=== PATIENT | female | born 1960 | race Caucasian/White ===

== ENCOUNTER 2016-11-16 07:47 | Inpatient (IN) | payer BC ==
[~2016-11-16] VITALS: Ht 160 cm; Wt 73.0 kg
[2016-11-16] MEDS ORDERED: ONDANSETRON INJ 2 MG/ML 2 ML VIAL IV STA (07:57)
[2016-11-16] MEDS ORDERED: SODIUM CHLORIDE 0.9% 1000ML 500 ML IV STA (07:57)
[2016-11-16] MEDS ORDERED: KETOROLAC TROMETHAMINE 30 MG/ML VIAL IV STA (07:57)
[2016-11-16] MEDS ORDERED: SODIUM CHLORIDE 0.9% 1000ML 1,000 ML IV STA (07:57)
[2016-11-16] MEDS ORDERED: OPTIRAY 320 IV PRN (08:15)
--- NOTE | 2016-11-16 08:20 | DIAGNOSTIC IMAGING REPORT ---
CHEST ONE VIEW PORTABLE CLINICAL HISTORY: ABDOMINAL PAIN/GI pain COMPARISON STUDY: No previous studies for comparison. FINDINGS: The bones soft tissues and hemidiaphragms are normal. The cardiomediastinal silhouette is normal. The lungs are clear. The pulmonary vasculature is normal. IMPRESSION: Negative chest. Electronically signed by: Laron Cain M.D. 11/16/2016 8:19 AM Dictated Date/Time: 11/16/2016 8:19 AM
[2016-11-16 08:24] LABS: BASO % 0.3 %; BASO ABS # 0.04 K/uL (0-0.2); COMPLETE YES; EOS % 1.6 %; HEMATOCRIT 43.3 % (37-47); IG% 0.2 %; LYMPH ABS # 1.85 K/uL (1.2-3.4); MEAN CELL VOLUME 89.1 fL (80-100); MEAN CORPUSCULAR HEMOGLOBIN 30.2 pg (25-34); MEAN CORPUSCULAR HGB CONC 33.9 g/dl (32-36); MEAN PLATELET VOLUME 9.9 fL (7.4-10.4); MONO % 7.3 %; NEUT % 75.6 %; PLATELET COUNT 306 K/uL (130-400); RED BLOOD COUNT 4.86 M/uL (4.2-5.4); WHITE BLOOD COUNT 12.31 K/uL (4.8-10.8)
[2016-11-16 08:32] LABS: INR 0.9 (0.9-1.1); PARTIAL THROMBOPLASTIN RATIO 1.1; PROTHROMBIN TIME (PATIENT) 10.1 SECONDS (9.0-12.0)
[2016-11-16 08:50] LABS: ALB/GLOB RATIO 1.1 (0.9-2); BUN/CREATININE RATIO 13.8 (10-20); CALCIUM 10.7 mg/dl (8.5-10.1); CREATININE 0.95 mg/dl (0.60-1.20); POTASSIUM 3.8 mmol/L (3.5-5.1)
[2016-11-16] MEDS ORDERED: CALC1CHW PO (08:55)
[2016-11-16] MEDS ORDERED: MULT-506 PO (08:55)
[2016-11-16] MEDS ORDERED: OMEG10007 PO (08:55)
[2016-11-16] MEDS ORDERED: GLUC10007 PO (08:55)
[2016-11-16] MEDS ORDERED: IBAN150T PO (08:55)
[2016-11-16 09:11] LABS: URINE APPEARANCE CLEAR (CLEAR); URINE BILIRUBIN NEG (NEG); URINE COLOR YELLOW; URINE NITRITE NEG (NEG); URINE PH 7.5 (4.5-7.5); URINE SPECIFIC GRAVITY 1.017 (1.000-1.030); UROBILINOGEN NEG (NEG); ZZUR CULT IF INDIC CLEAN CATCH NO
[2016-11-16 09:12] LABS: MANUAL MICROSCOPIC REQUIRED? NO; REVIEW REQ? NO
--- NOTE | 2016-11-16 10:13 | EMERGENCY ROOM VISIT NOTE ---
History Report prepared by Kailey: Shamir Nunes Under the Supervision of: Dr. Power Ridley M.D. First contact with patient: 07:55 Chief Complaint: BACK PAIN Stated Complaint: LEFT LOWER QUAD PAIN, LOWER BACK ACHE History of Present Illness The patient is a 56 year old female who presents to the Emergency Room with complaints of waxing & waning left lower quadrant abdominal pain that started this morning. The pain radiates to her lower back and is currently rated 7/10 in severity. She has not taken anything for pain. Two nights ago she started to experience chills, shakiness, nausea, and vomiting. Today she is still feeling cold along with the pain that started today. She denies any documented fevers, cough, congestion, diarrhea, or urinary symptoms. She denies any recent falls or trauma. The patient has a past surgical history including hysterectomy, bilateral oophorectomy, and partial colectomy. She denies any history of diverticulitis or pyelonephritis. Her last colonoscopy was 10 months ago. She has no known drug allergies. She follows up with Dr. Turk (Internal Medicine). Source of History: patient Onset: this morning Position: abdomen (LLQ) Symptom Intensity: 7/10 Timing: waxes/wanes Associated Symptoms: + back pain, + chills, + nausea, + vomiting, No cough, No diarrhea, No fevers, No urinary symptoms Review of Systems See HPI for pertinent positives & negatives. A total of 10 systems reviewed and were otherwise negative. Past Medical & Surgical Medical Problems: (1) L URETERAL OBST. PELVIC MASSES. H/O ENDOMETRIAL SARCOMA (2) L URETERAL OBST. PELVIC MASSES. H/O ENDOMETRIAL SARCOMA Social History Marital Status: Housing Status: lives with family Current/Historical Medications Scheduled Calcium Carbonate-Vitamin D (Caltrate 600+D), 1 TAB PO DAILY Glucosamine Sulfate (Glucosamine), 1,000 MG PO DAILY Ibandronate Sodium (Boniva), 150 MG PO MONTHLY Multivitamin (Multivitamin), 1 TAB PO DAILY Miscellaneous Medications Fish Oil ([place]-3), 1 CAP PO Allergies Coded Allergies: No Known Allergies (Unverified , 11/16/16) Physical Exam Vital Signs Date Time Temp Pulse Resp B/P Pulse Ox O2 Delivery O2 Flow Rate FiO2 11/16/16 11:44 78 18 136/75 99 Room Air 11/16/16 10:00 68 18 137/71 96 Room Air 11/16/16 07:56 36.5 88 16 152/97 99 Room Air Physical Exam GENERAL: Patient is in no acute distress. HEENT: No acute trauma, normocephalic atraumatic, mucous membranes moist, no nasal congestion, no scleral icterus. NECK: No stridor, no adenopathy, no meningismus, trachea is midline. LUNGS: Clear to auscultation bilaterally, no wheeze, no rhonchi, breath sounds equal. HEART: Without murmurs gallops or rubs, regular rate and rhythm. ABDOMEN: Soft, tender to palpate the lateral mid left abdominal area, bowel sounds positive, no hernias, no peritonitis. BACK: Left flank discomfort with percussion. EXTREMITIES: No cyanosis or edema, full range of motion of all the joints without pain or difficulty, no signs for acute trauma. NEUROLOGIC: Oriented x 3, no acute motor or sensory deficits, no focal weakness. SKIN: No rash, no jaundice, no diaphoresis. Medical Decision & Procedures ER Provider Diagnostic Interpretation: Radiology results as stated below per my review and radiologist interpretation: CT OF THE ABDOMEN AND PELVIS WITH CONTRAST CLINICAL HISTORY: Severe left lower quadrant pain. Evaluate for acute diverticulitis. COMPARISON STUDY: CT of the abdomen and pelvis October 07, 2015. TECHNIQUE: Following IV administration of 93 mL of Optiray-320, axial images of the abdomen and pelvis were obtained from the lung bases to the proximal femurs. Images were reviewed in the axial, sagittal, and coronal planes. IV contrast was administered without complication. Oral contrast was administered. CT DOSE: 660.36 mGycm FINDINGS: Visualized portions of the lower lungs demonstrate several subpleural nodules which measure up to 7 mm. These are unchanged since exam of October 31, 2006. The liver, spleen and pancreas are unremarkable. A 1.1 cm fat-containing right adrenal nodule represents a myelolipoma and is benign. There is no biliary or pancreatic ductal dilatation. A few subcentimeter hypodense left renal lesions likely reflect cysts. There is moderate to severe left hydroureteronephrosis with abrupt cut off of the left ureter at the level of the left sacroiliac joint. The abrupt change of the left ureter is likely due to a 2.7 x 2.7 cm mass within the left upper hemipelvis shown on axial image 307 of 451. In addition, there is a 3.3 x 2.1 cm mass which appears to be arising from the left aspect of the vaginal cuff. By report, the patient is status post hysterectomy and bilateral ovarian resection. No ureteral calculi are identified. There is no evidence for a bowel obstruction. Caliber and wall thickness of small and large bowel are normal. There is no evidence for acute diverticulitis. No suspicious osseous lesions are present. IMPRESSION: Moderate to severe left hydroureteronephrosis with mild perinephric infiltration with abrupt caliber change of the distal left ureter likely due to a 2.7 x 2.7 cm left pelvic mass with an adjacent 2.7 x 0.7 cm enhancing mass. By report, the patient is status post hysterectomy and bilateral oophorectomy. In addition, a 3.3 x 2.1 cm mass arising from the left aspect of the vaginal cuff is noted. These findings are suggestive of recurrent malignancy. Gynecologic consultation is recommended. Findings discussed with Dr. Ridley at time of dictation. Electronically signed by: Uzair Us M.D. 11/16/2016 11:47 AM Dictated Date/Time: 11/16/2016 11:27 AM CHEST ONE VIEW PORTABLE CLINICAL HISTORY: ABDOMINAL PAIN/GI pain COMPARISON STUDY: No previous studies for comparison. FINDINGS: The bones soft tissues and hemidiaphragms are normal. The cardiomediastinal silhouette is normal. The lungs are clear. The pulmonary vasculature is normal. IMPRESSION: Negative chest. Electronically signed by: Laron Cain M.D. 11/16/2016 8:19 AM Dictated Date/Time: 11/16/2016 8:19 AM Laboratory Results 11/16/16 08:05 Red Blood Count 4.86, Mean Corpuscular Volume 89.1, Mean Corpuscular Hemoglobin 30.2, Mean Corpuscular Hemoglobin Concent 33.9, Mean Platelet Volume 9.9, Neutrophils (%) (Auto) 75.6, Lymphocytes (%) (Auto) 15.0, Monocytes (%) (Auto) 7.3, Eosinophils (%) (Auto) 1.6, Basophils (%) (Auto) 0.3, Neutrophils # (Auto) 9.29, Lymphocytes # (Auto) 1.85, Monocytes # (Auto) 0.90, Eosinophils # (Auto) 0.20, Basophils # (Auto) 0.04 11/16/16 08:05 Test 11/16/16 07:55 11/16/16 08:05 Urine Color YELLOW Urine Appearance CLEAR (CLEAR) Urine pH 7.5 (4.5-7.5) Urine Specific [place] 1.017 (1.000-1.030) Urine Protein NEG (NEG) Urine Glucose (UA) NEG (NEG) Urine Ketones NEG (NEG) Urine Occult Blood NEG (NEG) Urine Nitrite NEG (NEG) Urine Bilirubin NEG (NEG) Urine Urobilinogen NEG (NEG) Urine Leukocyte Esterase NEG (NEG) White Blood Count 12.31 K/uL (4.8-10.8) Red Blood Count 4.86 M/uL (4.2-5.4) Hemoglobin 14.7 g/dL (12.0-16.0) Hematocrit 43.3 % (37-47) Mean Corpuscular Volume 89.1 fL (80-100) Mean Corpuscular Hemoglobin 30.2 pg (25-34) Mean Corpuscular Hemoglobin Concent 33.9 g/dl (32-36) Platelet Count 306 K/uL (130-400) Mean Platelet Volume 9.9 fL (7.4-10.4) Neutrophils (%) (Auto) 75.6 % Lymphocytes (%) (Auto) 15.0 % Monocytes (%) (Auto) 7.3 % Eosinophils (%) (Auto) 1.6 % Basophils (%) (Auto) 0.3 % Neutrophils # (Auto) 9.29 K/uL (1.4-6.5) Lymphocytes # (Auto) 1.85 K/uL (1.2-3.4) Monocytes # (Auto) 0.90 K/uL (0.11-0.59) Eosinophils # (Auto) 0.20 K/uL (0-0.5) Basophils # (Auto) 0.04 K/uL (0-0.2) RDW Standard Deviation 43.0 fL (36.4-46.3) RDW Coefficient of Variation 13.2 % (11.5-14.5) Immature Granulocyte % (Auto) 0.2 % Immature Granulocyte # (Auto) 0.03 K/uL (0.00-0.02) Prothrombin Time 10.1 SECONDS (9.0-12.0) Prothromb Time International Ratio 0.9 (0.9-1.1) Activated Partial Thromboplast Time 27.4 SECONDS (21.0-31.0) Partial Thromboplastin Ratio 1.1 Anion Gap 6.0 mmol/L (3-11) Est Creatinine Clear Calc Drug Dose 61.8 ml/min Estimated GFR () 76.5 Estimated GFR (Non- 66.0 BUN/Creatinine Ratio 13.8 (10-20) Lactic Acid Level 1.0 mmol/L (0.4-2.0) Calcium Level 10.7 mg/dl (8.5-10.1) Total Bilirubin 0.4 mg/dl (0.2-1) Aspartate Amino Transf (AST/SGOT) 24 U/L (15-37) Alanine Aminotransferase (ALT/SGPT) 49 U/L (12-78) Alkaline Phosphatase 100 U/L (45-117) Total Protein 8.0 gm/dl (6.4-8.2) Albumin 4.2 gm/dl (3.4-5.0) Globulin 3.8 gm/dl (2.5-4.0) Albumin/Globulin Ratio 1.1 (0.9-2) Lipase 84 U/L (73-393) Laboratory results reviewed by me. Medications Administered Medications (Trade) Dose Ordered Sig/Deborah Route Start Time Stop Time Status Last Admin Dose Admin Sodium Chloride (Nss 1000ml) 500 ml @ 999 mls/hr Q31M STAT IV 11/16/16 07:57 11/16/16 08:27 DC 11/16/16 07:57 999 MLS/HR Ondansetron HCl 4 mg 4 mg NOW STAT IV 11/16/16 07:57 11/16/16 08:04 DC 11/16/16 08:15 4 MG Sodium Chloride (Nss 1000ml) 1,000 ml @ 200 mls/hr Q5H STAT IV 11/16/16 07:57 11/16/16 13:00 DC 11/16/16 07:57 200 MLS/HR Ketorolac Tromethamine (Toradol Inj) 30 mg NOW STAT IV 11/16/16 07:57 11/16/16 08:05 DC 11/16/16 08:16 30 MG Hydromorphone HCl (Dilaudid Inj) 1 mg STK-MED ONCE .ROUTE 11/16/16 12:54 11/16/16 12:55 DC 11/16/16 12:56 1 MG ED Course 0755: The patient was evaluated in room A10. A complete history and physical exam was performed. 0757: Toradol 30 mg IV, NSS 1000 ml @ 200 mls/hr, Zofran 4 mg IV, NSS 500 ml @ 999 mls/hr. 1040: Updated the patient on the workup so far. 1138: Dr. Us (Radiology) called to discuss the CT findings. 1201: Discussed the case with Dr. Turk, Internal Medicine. He would like to keep the patient in the hospital. He also requested a Urology consult. 1206: Updated the patient on the workup. 1234: Spoke with a mid-level provider from Dr. Judge's office. They will call back. 1255: Discussed the case with Dr. Judge, Urologist. He agreed to offer consult. Medical Decision Differential diagnosis includes pyelonephritis, renal colic, UTI, diverticulitis , bowel obstruction, adhesions, bowel perforation, hernia, pneumonia. There is a mild leukocytosis which could be consistent with infection or just her pain. No anemia. No significant electrolyte abnormality, kidney failure or hepatitis. There is no pancreatitis. Urinalysis does not show hematuria or infection. Chest film does not show pneumonia or free air. Abdominal and pelvis CT shows left sided hydronephrosis and hydroureter. There are findings in the pelvis concerning for return of her malignancy. The patient received IV saline, IV Toradol and IV Zofran, she is more comfortable. I discussed the case with Dr. Alexander Turk. The patient will be brought into the hospital for now for more of a workup and possibly a left ureteral stent. I talked to the patient about her findings, case management has been involved. Consults Time Called: 114 Consulting Physician: Dr. Turk, Internal Medicine Returned Call: 1201 He would like to keep the patient in the hospital. He also requested a Urology consult. Additional Consults: Time Called: 1234 Consulted Physician: Dr. Judge, Urology Returned Call: [phone] Additional Comments: He agreed to offer consult. Impression Primary Impression: Hydronephrosis Additional Impressions: Left flank pain Pelvic mass Scribe Attestation The scribe's documentation has been prepared under my direction and personally reviewed by me in its entirety. I confirm that the note above accurately reflects all work, treatment, procedures, and medical decision making performed by me. Departure Information Dispostion Being Evaluated By Hospitalist Referrals Alexander Villanueva M.D. (PCP) Patient Instructions My [facility] Problem Qualifiers
--- NOTE | 2016-11-16 11:48 | DIAGNOSTIC IMAGING REPORT ---
CT OF THE ABDOMEN AND PELVIS WITH CONTRAST CLINICAL HISTORY: Severe left lower quadrant pain. Evaluate for acute diverticulitis. COMPARISON STUDY: CT of the abdomen and pelvis October 07, 2015. TECHNIQUE: Following IV administration of 93 mL of Optiray-320, axial images of the abdomen and pelvis were obtained from the lung bases to the proximal femurs. Images were reviewed in the axial, sagittal, and coronal planes. IV contrast was administered without complication. Oral contrast was administered. CT DOSE: 660.36 mGycm FINDINGS: Visualized portions of the lower lungs demonstrate several subpleural nodules which measure up to 7 mm. These are unchanged since exam of October 31, 2006. The liver, spleen and pancreas are unremarkable. A 1.1 cm fat-containing right adrenal nodule represents a myelolipoma and is benign. There is no biliary or pancreatic ductal dilatation. A few subcentimeter hypodense left renal lesions likely reflect cysts. There is moderate to severe left hydroureteronephrosis with abrupt cut off of the left ureter at the level of the left sacroiliac joint. The abrupt change of the left ureter is likely due to a 2.7 x 2.7 cm mass within the left upper hemipelvis shown on axial image 307 of 451. In addition, there is a 3.3 x 2.1 cm mass which appears to be arising from the left aspect of the vaginal cuff. By report, the patient is status post hysterectomy and bilateral ovarian resection. No ureteral calculi are identified. There is no evidence for a bowel obstruction. Caliber and wall thickness of small and large bowel are normal. There is no evidence for acute diverticulitis. No suspicious osseous lesions are present. IMPRESSION: Moderate to severe left hydroureteronephrosis with mild perinephric infiltration with abrupt caliber change of the distal left ureter likely due to a 2.7 x 2.7 cm left pelvic mass with an adjacent 2.7 x 0.7 cm enhancing mass. By report, the patient is status post hysterectomy and bilateral oophorectomy. In addition, a 3.3 x 2.1 cm mass arising from the left aspect of the vaginal cuff is noted. These findings are suggestive of recurrent malignancy. Gynecologic consultation is recommended. Findings discussed with Dr. Ridley at time of dictation. Electronically signed by: Uzair Us M.D. 11/16/2016 11:47 AM Dictated Date/Time: 11/16/2016 11:27 AM
[2016-11-16] MEDS ORDERED: HYDROmorphone INJ 1 MG/ML SYR IV STA (12:37)
[2016-11-16] MEDS ORDERED: HYDROmorphone INJ 1 MG/ML SYR ONE (12:54)
[2016-11-16] MEDS ORDERED: HYDROmorphone INJ 1 MG/ML SYR IV PRN (13:00)
--- NOTE | 2016-11-16 13:48 | Urology Consultation ---
History General Date of Service: November 16, 2016. Primary Care Physician: Alexander Villanueva M.D. Pt seen a urologist before?: Yes (Dr. Hall previous ureteral stents for pelvic mass) History of Present Illness 56 year old female who presented to the ER today with left pelvic pain. CT scan revealed left hydroureteronephrosis due to large pelvic mass compressing the left ureter. Pt reports she has been having left sided pain for almost a year now but felt it was due to IBS. She has an extensive history of abdominal surgeries.Hx of uterine cancer total hysterectomy and bilateral salpingo oophorectomy, along with debulking surgery- hemicolectomy 21 years ago. Currently her creatinine is normal, she is afebrile, VSS. Her WBC are elevated 12.31 UA appears normal. Imaging Imaging: CT Laboratory Last 24 Hours Test 11/16/16 07:55 11/16/16 08:05 Urine Color YELLOW Urine Appearance CLEAR Urine pH 7.5 Urine Specific [place] 1.017 Urine Protein NEG Urine Glucose (UA) NEG Urine Ketones NEG Urine Occult Blood NEG Urine Nitrite NEG Urine Bilirubin NEG Urine Urobilinogen NEG Urine Leukocyte Esterase NEG White Blood Count 12.31 K/uL Red Blood Count 4.86 M/uL Hemoglobin 14.7 g/dL Hematocrit 43.3 % Mean Corpuscular Volume 89.1 fL Mean Corpuscular Hemoglobin 30.2 pg Mean Corpuscular Hemoglobin Concent 33.9 g/dl Platelet Count 306 K/uL Mean Platelet Volume 9.9 fL Neutrophils (%) (Auto) 75.6 % Lymphocytes (%) (Auto) 15.0 % Monocytes (%) (Auto) 7.3 % Eosinophils (%) (Auto) 1.6 % Basophils (%) (Auto) 0.3 % Neutrophils # (Auto) 9.29 K/uL Lymphocytes # (Auto) 1.85 K/uL Monocytes # (Auto) 0.90 K/uL Eosinophils # (Auto) 0.20 K/uL Basophils # (Auto) 0.04 K/uL RDW Standard Deviation 43.0 fL RDW Coefficient of Variation 13.2 % Immature Granulocyte % (Auto) 0.2 % Immature Granulocyte # (Auto) 0.03 K/uL Prothrombin Time 10.1 SECONDS Prothromb Time International Ratio 0.9 Activated Partial Thromboplast Time 27.4 SECONDS Partial Thromboplastin Ratio 1.1 Sodium Level 141 mmol/L Potassium Level 3.8 mmol/L Chloride Level 105 mmol/L Carbon Dioxide Level 30 mmol/L Anion Gap 6.0 mmol/L Blood Urea Nitrogen 13 mg/dl Creatinine 0.95 mg/dl Est Creatinine Clear Calc Drug Dose 61.8 ml/min Estimated GFR () 76.5 Estimated GFR (Non- 66.0 BUN/Creatinine Ratio 13.8 Random Glucose 109 mg/dl Lactic Acid Level 1.0 mmol/L Calcium Level 10.7 mg/dl Total Bilirubin 0.4 mg/dl Aspartate Amino Transf (AST/SGOT) 24 U/L Alanine Aminotransferase (ALT/SGPT) 49 U/L Alkaline Phosphatase 100 U/L Total Protein 8.0 gm/dl Albumin 4.2 gm/dl Globulin 3.8 gm/dl Albumin/Globulin Ratio 1.1 Lipase 84 U/L Current Inpatient Medications Medications (Trade) Dose Ordered Sig/Deborah Route Start Time Stop Time Status Last Admin Dose Admin Ioversol (Optiray 320) 100 ml UD PRN IV 11/16/16 08:15 11/20/16 08:14 Hydromorphone HCl (Dilaudid Inj) 0.5 mg Q3H PRN IV 11/16/16 13:00 11/30/16 12:59 Labs were reviewed and are within normal limits unless listed below. Labs are available in the chart and at [facility] Problem List Medical Problems: (1) Hydronephrosis Status: Acute (2) Left flank pain Status: Acute (3) Pelvic mass Status: Acute Past History bowel obstruction, cancer (uterine) Past Surgical History: colectomy, colonoscopy (10 month ago), hysterectomy, oophorectomy Social History Smoking: non-smoker Alcohol: never Marital status: History of MDRO No Allergies Coded Allergies: No Known Allergies (Unverified , 11/16/16) Medications Home Medications: Home Meds and Scripts Medications Dose Route/Sig Max Daily Dose Days Date Category Glucosamine (Glucosamine Sulfate) 1,000 Mg Tab 1,000 Mg PO DAILY 11/16/16 Reported Multivitamin (Multivitamins) Tab 1 Tab PO DAILY 11/16/16 Reported [place]-3 (Fish Oil) 1 Ea Cap 1 Cap PO 11/16/16 Reported Boniva (Ibandronate Sodium) 150 Mg Tab 150 Mg PO MONTHLY 11/16/16 Reported Caltrate 600+D (Calcium Carbonate-Vitamin D) 1 Chw Chw 1 Tab PO DAILY 11/16/16 Reported Inpatient Medications: Current Inpatient Medications Medications (Trade) Dose Ordered Sig/Deborah Route Start Time Stop Time Status Last Admin Dose Admin Ioversol (Optiray 320) 100 ml UD PRN IV 11/16/16 08:15 11/20/16 08:14 Hydromorphone HCl (Dilaudid Inj) 0.5 mg Q3H PRN IV 11/16/16 13:00 11/30/16 12:59 Review of Systems Review of Systems Constitutional: No chills, No fever Eyes: No blurred vision Neurological: No dizzy Endocrine: No excessive thirst Gastrointestinal: + see HPI Cardiovascular: No chest pain, No heart murmur Respiratory: No shortness of breath, No wheezing Skin: No rash Musculoskeletal: No joint pain Blood / Lymphatic: No bleed easily Ears / Nose / Throat: No hearing loss Psychologic / Mental: No nervous Female : No blood in urine, No frequent urination, No kidney stones, No painful urination Physical Exam Vital Signs: Vital Signs Past 12 Hours Date Time Temp Pulse Resp B/P Pulse Ox O2 Delivery O2 Flow Rate FiO2 11/16/16 11:44 78 18 136/75 99 Room Air 11/16/16 10:00 68 18 137/71 96 Room Air 11/16/16 07:56 36.5 88 16 152/97 99 Room Air Physical Exam: General Appearance: WD/WN, no apparent distress Eyes: bilateral eyes normal inspection ENT: hearing grossly normal Neck: no JVD Respiratory/Chest: lungs clear, normal breath sounds, no respiratory distress, no accessory muscle use Cardiovascular: regular rate, rhythm, no edema, no gallop, no JVD, no murmur Gastrointestinal: Abdomen: normal abdomen, LUQ tenderness, LLQ tenderness Extremities: normal range of motion, non-tender, normal inspection, no pedal edema, no calf tenderness, normal capillary refill Neurologic/Psychiatric: 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 This is causing the pt left sided pain. Discussed case with Dr. Judge- plan to proceed to OR for cystoscopy, left stent placement to relieve hydro. If unable to be placed she will need sent to a tertiary care center. Discussed this, risks, benefits with pt and and answered all questions. EKG AND CXR normal Consents signed and on chart. Thank you for the opportunity to participate in the care of this patient. Agree with above
[2016-11-16 14:15] VITALS: BP 121/74; PULSE 69; TEMP 36.5; O2SAT 98; Ht 160 cm; Wt 73.0 kg
[2016-11-16 14:51] VITALS: BP 115/77; PULSE 69; TEMP 36.5; O2SAT 99
[2016-11-16] MEDS ORDERED: CONRAY 30% 150ML BOTTLE ONE (15:35)
--- NOTE | 2016-11-16 16:11 | HISTORY & PHYSICAL EXAMINATION ---
DATE OF ADMISSION: 11/16/2016 A 56-year-old female admitted through the Emergency Room with evidence of left hydroureteronephrosis on the left side and also evidence of pelvic masses. HISTORY OF PRESENT ILLNESS: The patient is with a remote history of spindle cell sarcoma of the uterus. She presented in 1995 with a bowel obstruction and left ureteral obstruction. Initially, she was seen by Dr. Miranda. She had a sigmoid resection. She had a Alfonso procedure. Later on, her colostomy was reversed, but after the initial surgery, she was taken back to the operating room and she had an extensive procedure with collaboration of general surgery, gynecology and urology. She had a total abdominal hysterectomy and salpingo-oophorectomy. She had a debulking procedure. Subsequently, she was seen by oncology, but also she was seen by Dr. Pendleton at [facility] and her treatment was completed. Actually from that standpoint, she has been doing well. She had a CT scan of the abdomen and pelvis on 10/07/2015 and at that time, no such abnormalities were noted. She also just had a gynecology exam. She also recently had a colonoscopy done. The patient was brought to the Emergency Room this morning. She was complaining of severe left lower quadrant and left flank pain. Actually, on Saturday night after a christian dinner, she presented with the pain and also she had some chills. Initially, she thought it was related to something she ate, but the pain persisted and was becoming more severe and described as spastic in nature. She got up this morning to go to work. 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 She was also having nausea. Yesterday, she also had some vomiting. So, she was brought to the Emergency Room. Her is with her. She was evaluated in the Emergency Room by Dr. Power Ridley. Multiple tests were done. The most important finding is on her CT scan of the abdomen and pelvis, which was done with contrast. It showed moderate to severe left hydroureteronephrosis with mild perinephric infiltration and abrupt caliber change of the distal left ureter, thought to be likely due to a 2.7 x 2.7 left pelvic mass. She also had an adjacent 2.7 x 0.7 enhancing mass. In addition, a 3.3 x 2.1 cm mass arising from the left aspect of the vaginal cuff was noted. I saw the patient in the Emergency Room. She is resting. She is still complaining of left-sided abdominal and flank pain. The pain is severe intermittently. Dr. Ridley already called for urology consultation and Dr. Judge called and I spoke with him. I explained to him the finding and requested a consultation for possibly put in a left ureteral stent to relieve the hydronephrosis and also relieve her pain. I was also able to speak with Dr. Pendleton and I called him at his cell phone number, and the plan at this time is for me to admit her here, take care of the pain, see if the urologist is successful in placing a stent and will get her scheduled to see Dr. Pendleton and he will give us his recommendation. PAST MEDICAL HISTORY: 1. Spindle cell sarcoma as noted above with procedures that she has had as noted above. 2. Osteoporosis. SOCIAL HISTORY: She is and has 4 children. No history of any smoking. No alcohol and no drugs. No excessive coffee, tea or soft drinks. 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 FAMILY HISTORY: Her mother is 82. She is living. Doing well. Her father is . He had atrial flutter and emphysema and possibly mesothelioma. She had 3 sisters. One sister had a double mastectomy for breast cancer. Children alive and well. ALLERGIES: None, but in the past, she had a REACTION TO MORPHINE, where she fell on the following day after administration. CURRENT MEDICATIONS: Include, 1. Boniva 150 mg monthly. 2. Calcium with vitamin D 1000 mg daily. 3. Vitamin D. She takes 1 capsule, not sure of the dose. 4. Fish oil 1 capsule daily. 5. Fiber pills daily. REVIEW OF SYSTEMS: At this time, she is resting comfortably. She has no headache, no dizziness, and no lightheadedness. She wears glasses. No earache, sore throat or neck pain. Denied any chest pain, pressure or tightness. No shortness of breath. No pain in her breasts. She is complaining of left-sided lower abdominal pain and also left flank pain. No nausea at this point. She has not had any problem with her bowel movements. No problem urinating. Did not notice any blood in her stool or urine. No pain in her extremities. PHYSICAL EXAMINATION: GENERAL: Well developed in no distress. VITAL SIGNS: Blood pressure on arrival to the Emergency Room was 152/97, pulse 88, respirations 16, temperature 36.5, and oxygen saturation 99% on room air. SKIN: Warm and dry. No rash. HEENT: She wears glasses. No evidence of any mucosal abnormalities in her nose, mouth or throat. NECK: Supple. Nontender. No lymph node or thyroid enlargement. No JVD. Normal carotid pulses. No bruit. CHEST: Normal. HEART: Regular heart sounds. No murmur, rub, or gallop. LUNGS: Clear. ABDOMEN: Soft with slight left lower quadrant tenderness. No guarding and no rebound. Complaining of left flank pain. EXTREMITIES: No pain in her extremities. LABORATORY TESTS: WBC count 12,310, hemoglobin 14.7, hematocrit 43.3, and platelet count 306,000. Prothrombin time 10.1, INR 0.9, and PTT 27.4. Sodium 141, potassium 3.8, chloride 105, CO2 of 30, BUN 13, creatinine 0.95, glucose 109, and calcium 10.7. Total bilirubin 0.4. AST 24, ALT 49, and alkaline phosphatase 100. Total protein 8.0, albumin 4.2, globulin 3.8, and lipase 84. Her urinalysis is completely normal. Her electrocardiogram is normal. Chest x-ray is normal. Her CT scan of the abdomen and pelvis with contrast showed the results as noted above. ASSESSMENT: 1. Left hydroureteronephrosis. 2. Pelvic masses. 3. History of spindle cell sarcoma of the uterus 21 years ago and had extensive surgery. 4. Osteoporosis. PLAN: As noted, the patient is being admitted to a medical/surgical bed. Resuscitation level 1. All her laboratory tests have been done. Imaging studies are done. The plan at this time is to admit the patient. I spoke with Dr. Judge. He will be attempting to place a left ureteral stent later today. The patient will be given Dilaudid for pain control. As noted above, I also spoke with Dr. Pendleton. The plan is to relieve her pain, relief the pressure on her left kidney and Dr. Pendleton will see her. We will call his office and get her scheduled as soon as he can see her and proceed with the treatment as he recommends.
[2016-11-16] MEDS ORDERED: LIDOCAINE HCL 2% 2 ML VIAL (20MG/ML) ONE (19:05)
[2016-11-16] MEDS ORDERED: PROPOFOL IV EMULSION 10 MG/ML 20 ML VIAL IV ONE (19:05)
[2016-11-16] MEDS ORDERED: FENTANYL CITRATE INJ 50 MCG/1 ML 2 ML VIAL ONE (19:06)
[2016-11-16] MEDS ORDERED: CEFAZOLIN SOD 1 GM VIAL ONE (19:16)
--- NOTE | 2016-11-16 19:27 | [facility] Post Operative Brief Note ---
Immediate Operative Summary Operative Date November 16, 2016. Pre-Operative Diagnosis Left hydroureteronephrosis Post-Operative Diagnosis Left hydroureteronephrosis Procedure(s) Performed Left Cystoscopy with Left ureteral stent placement Surgeon Dr Judge Tobacco Stemmer Surgeon(s) none Estimated Blood Loss 0cc Findings left hydro Specimens none Drains 6x26 left stent Anesthesia mac Complication(s) None Disposition Recovery Room / PACU
[2016-11-16] MEDS ORDERED: ONDANSETRON INJ 2 MG/ML 2 ML VIAL IV PRN (19:30)
[2016-11-16] MEDS ORDERED: ATROPINE SULFATE 0.1 MG/ML 5ML SYR IV PRN (19:30)
[2016-11-16] MEDS ORDERED: EpHEDrine SULFATE INJ 50 MG/ML AMP IV PRN (19:30)
[2016-11-16] MEDS ORDERED: FENTANYL CITRATE INJ 50 MCG/1 ML 2 ML VIAL IV PRN (19:30)
--- NOTE | 2016-11-16 19:43 | DIAGNOSTIC IMAGING REPORT ---
KUB HISTORY: LT STENT PLACEMENT FLUOROSCOPY TIME: 19 seconds. FINDINGS: 2 fluoroscopic spot images were submitted for review. Opacification of the left renal collecting system from the prior CT examination. There is moderate left hydronephrosis. A left ureteral stent is placed. The proximal portion is visualized and appears to be in good position. IMPRESSION: Fluoroscopy provided for left ureteral stent placement. Electronically signed by: Jordin Ruiz M.D. 11/16/2016 7:41 PM Dictated Date/Time: 11/16/2016 7:40 PM
--- NOTE | 2016-11-16 19:56 | Anesthesiology Progress Note ---
Anesthesia Post Op Note Date & Time November 16, 2016 at 19:55 Vital Signs Pain Intensity: 0 Vital Signs Past 12 Hours Date Time Temp Pulse Resp B/P Pulse Ox O2 Delivery O2 Flow Rate FiO2 11/16/16 19:45 36.2 63 16 116/58 97 Room Air 11/16/16 19:35 72 16 118/62 95 Room Air 11/16/16 19:27 36.2 72 16 126/55 100 Mask 10 11/16/16 14:51 36.5 69 16 115/77 99 Room Air 11/16/16 14:15 36.5 69 18 121/74 98 Room Air 11/16/16 14:05 69 20 118/59 99 11/16/16 13:40 69 20 118/59 99 Room Air 11/16/16 11:44 78 18 136/75 99 Room Air 11/16/16 10:00 68 18 137/71 96 Room Air 11/16/16 07:56 36.5 88 16 152/97 99 Room Air Notes Mental Status: alert / awake / arousable, participated in evaluation Pt Amnestic to Procedure: Yes Nausea / Vomiting: adequately controlled Pain: adequately controlled Airway Patency, RR, SpO2: stable & adequate BP & HR: stable & adequate Hydration State: stable & adequate Anesthetic Complications: no major complications apparent
[2016-11-16 20:59] VITALS: BP 106/65; PULSE 74; TEMP 36.5; O2SAT 99
--- NOTE | 2016-11-16 21:31 | OPERATIVE REPORT ---
DATE OF OPERATION: 11/16/2016 PREOPERATIVE DIAGNOSIS: Left hydronephrosis secondary to extrinsic compression of the ureter from a probable metastatic deposit. POSTOPERATIVE DIAGNOSIS: Same. PROCEDURE: Cystoscopy, placement of indwelling double J left ureteral stent 6-Prydeinig x 26 cm. FINDINGS: Cystoscopic exam revealed normal urethra. Bladder showed no mucosal abnormalities. The patient had dye in the collecting system from a prior CAT scan which showed hydroureteronephrosis. SURGEON: Edgardo Judge MD ANESTHESIA: MAC. DRAINS: 6-Prydeinig x 26 cm left ureteral stent. COMPLICATIONS: None. SPECIMENS: None. INDICATIONS: The patient is a 56-year-old white female who was admitted to the hospital with left renal colic secondary to ureteral obstruction from what appears to be a metastatic deposit from a uterine cancer or ovarian cancer. She was having significant pain, so she is being brought in for stent placement. DESCRIPTION OF PROCEDURE: After induction of an adequate level of intravenous sedation and appropriate time out, patient was placed in the dorsal lithotomy position, lower abdomen and genitalia were prepped with Hibiclens and draped in sterile fashion. Using a 22-Prydeinig cystoscope, routine cystoscopic exam was performed with the above noted findings. Fluoroscopy showed that there was still dye in the system from her prior CAT scan, so a 0.03 guidewire was passed up the left ureter under fluoroscopic guidance until positioned in the left renal pelvis, confirmed by fluoroscopy. Then over this a 6-Prydeinig x 26 cm stent was passed over the guidewire up the left ureter under fluoroscopic guidance until positioned in the renal pelvis. The guidewire was removed. There was good curl at the bladder level. After completing stent placement. The patient's bladder was drained, cystoscope and sheath were removed. All needle, sponge and instrument counts were correct at the end of the case. The patient tolerated the procedure well and went to the recovery room in stable condition. I attest to the content of the Intraoperative Record and any orders documented therein. Any exceptio ns are noted below.
[2016-11-16 23:18] VITALS: BP 98/61; PULSE 70; TEMP 36.5; O2SAT 95
[2016-11-17 03:45] VITALS: BP 98/61; PULSE 57; TEMP 36.7; O2SAT 96
[2016-11-17 06:46] LABS: BASO % 0.4 %; BASO ABS # 0.03 K/uL (0-0.2); COMPLETE YES; EOS % 2.9 %; HEMATOCRIT 41.5 % (37-47); IG% 0.1 %; LYMPH % 21.3 %; LYMPH ABS # 1.66 K/uL (1.2-3.4); MEAN CELL VOLUME 88.9 fL (80-100); MEAN CORPUSCULAR HEMOGLOBIN 29.3 pg (25-34); MEAN PLATELET VOLUME 9.6 fL (7.4-10.4); MONO % 8.1 %; NEUT % 67.2 %; PLATELET COUNT 281 K/uL (130-400); RED BLOOD COUNT 4.67 M/uL (4.2-5.4); WHITE BLOOD COUNT 7.81 K/uL (4.8-10.8)
[2016-11-17 07:05] VITALS: BP 138/81; PULSE 64; TEMP 36.8; O2SAT 95
[2016-11-17 07:23] LABS: BUN/CREATININE RATIO 11.9 (10-20); CALCIUM 9.5 mg/dl (8.5-10.1); CREATININE 0.86 mg/dl (0.60-1.20); POTASSIUM 3.9 mmol/L (3.5-5.1)
--- NOTE | 2016-11-17 09:55 | Discharge Instructions ---
Discharge Instructions Date of Service November 17, 2016. Admission Reason for Admission: L Ureteral Obstruction, Pelvic Masses H/O spindle cell sarcoma of the uterus Discharge Discharge Diagnosis / Problem: Left hydroureteronephrosis. Multiple pelvic masses. History of spindle cell Discharge Goals Goal(s): Decrease discomfort, Diagnostic testing Activity Recommendations Activity Limitations: resume your previous activity . Instructions / Follow-Up Instructions / Follow-Up Will schedule appointment with Dr. Pendleton Current Hospital Diet Patient's current hospital diet: Regular Diet Discharge Diet Recommended Diet: Regular Diet Procedures Procedures Performed: Left Cystoscopy Ureteral Stent Insertion Pending Studies Studies pending at discharge: yes List of pending studies: CA-125 Medical Emergencies . Who to Call and When: Medical Emergencies: If at any time you feel your situation is an emergency, please call 911 immediately. . Non-Emergent Contact Non-Emergency issues call your: Primary Care Provider . . "Provider Documentation" section prepared by Alexander Turk. . VTE Core Measure Inpt VTE Proph given/why not?: Treatment not indicated
[2016-11-17 10:05] VITALS: BP 138/81; PULSE 64; TEMP 36.8; O2SAT 95
--- NOTE | 2016-11-17 10:07 | Progress Note ---
Progress Note Date of Service November 17, 2016. Progress Note Postop day 1 post left stent placement Patient afebrile vital signs are stable Left flank pain has resolved Voiding without difficulty She will be going to see her landfill attendant in [place] I did explain to her that the stent will need to be changed in about 3 months unless is removed I will schedule follow-up appointment with her although she tells me that she may have all of this done in [place].
--- NOTE | 2016-11-17 12:47 | PROGRESS NOTE ---
DATE: 11/17/2016 SUBJECTIVE: A 56-year-old female admitted yesterday with left hydroureteronephrosis. She had an obstructed left ureter. She had masses noted in her pelvic area. She has a history of spindle cell carcinoma of the uterus, which was diagnosed and treated 21 years ago. Otherwise, she is treated for osteoporosis. Overall, she is doing well. Yesterday, Dr. Judge was able to place a left ureteral stent. Since then, all her pain has resolved. She has not required any pain medication. She remains completely afebrile. She denied any headache. No dizziness. No chest pain and no shortness of breath. Very minimal left-sided lower abdominal pain. She graded it at 1/10. She does not want to take any pain medication. No urinary problem. No pain in her back or extremities. PHYSICAL EXAMINATION: GENERAL: Well developed in no distress. VITAL SIGNS: Blood pressure 138/81, pulse 64, respirations 16, temperature 36.8, and oxygen saturation 95% on room air. SKIN: Warm and dry. No rash. HEENT: No evidence of any mucosal abnormality. NECK: No adenopathy. HEART: Regular heart sounds. LUNGS: Clear. ABDOMEN: Soft. No significant tenderness. No guarding. No rebound. BACK: No spinal tenderness. EXTREMITIES: No edema, clubbing, or cyanosis. TODAY'S LABORATORY TESTS: WBC count 7810, hemoglobin 13.7, hematocrit 41.5, and platelet count 281,000. Sodium 144, potassium 3.9, chloride 109, CO2 of 29, BUN 10, creatinine 0.86, glucose 82, and calcium 9.5. ASSESSMENT: 1. Left hydroureteronephrosis with left ureteral obstruction. 2. Pelvic masses. 3. History of spindle cell carcinoma of the uterus 21 years ago. 4. Osteoporosis. PLAN: 1. She is doing quite well. The placement of a stent was successful. All her pain has resolved. 2. The plan at this time is to send her home today. On Saturday morning, We will Dr. Pendleton's office in [place] and get her scheduled to see him. Already, we spoke with him yesterday when I admitted Mrs. Hurtado. 3. The patient did not like to take any pain medication. She is not having that much discomfort at this point. I asked her to call in case anything changes. 4. I asked the radiology department to put all her studies that were done during this hospitalization on a disc. I will pick it up tomorrow and make sure that she carries it when she goes down to see Dr. Pendleton.
--- NOTE | 2016-11-25 22:40 | DISCHARGE SUMMARY ---
DISCHARGE DIAGNOSES: 1. Left hydroureteronephrosis. 2. Multiple pelvic masses. 3. History of spindle cell sarcoma of the uterus, 21 years ago. 4. Osteoporosis. DISCHARGE MEDICATIONS: 1. Calcium with vitamin D 600 mg daily. 2. Fish oil 1 capsule daily. 3. Glucosamine 1000 mg daily. 4. Boniva 150 mg monthly. 5. Multivitamin 1 daily. CONSULTATIONS: 1. Dr. Edgardo Judge in urology. PROCEDURE: 1. Cystoscopy and placement of a left ureteral stent done by Dr. Judge, on the day of admission. HISTORY OF PRESENT ILLNESS: A 56-year-old female admitted through the Emergency Room with left hydroureteronephrosis and evidence of pelvic masses. The patient with remote history of spindle cell sarcoma of the uterus diagnosed in 1995 and underwent extensive surgery and hormonal therapy. She has been doing well without any evidence of any problem. She was brought to the Emergency Room on the day of admission. She was complaining of severe left lower quadrant and left flank pain. Actually on Saturday night after restorationism dinner, she presented with the pain and also she had some chills. Initially, she thought it was related to something she ate, but the pain persisted. She was evaluated by Dr. Ridley. Multiple tests were done including a CT scan of the abdomen and pelvis. It showed moderate to severe left hydronephrosis with mild perinephric infiltration and abrupt caliber change of the distal left ureter, thought to be due to a 2.7 x 2.7 left pelvic mass. She also had an adjacent 2.7 x 0.7 cm enhancing mass. An additional mass of 3.3 x 2.2 cm was noted in the left aspect of the vaginal cuff. I saw the patient in the Emergency Room. Urology consultation was requested. I spoke with Dr. Judge. I also spoke with Dr. Pendleton in [place]. He is the oncological surveyor hydrographic who treated Mrs. Hurtado 21 years ago after she had her extensive surgery here in [place]. The patient was admitted for further evaluation. PAST MEDICAL HISTORY, SOCIAL HISTORY AND FAMILY HISTORY: All as noted. ALLERGIES: SHE HAD A REACTION TO MORPHINE IN THE PAST. MEDICATIONS ON ADMISSION: All as noted. PHYSICAL EXAMINATION AND ADMISSION LABORATORY TESTS: All as noted. HOSPITAL COURSE: The patient was admitted to medical bed. Resuscitation level 1. Pain control. Urology consultation was requested. She was seen by Dr. Judge. A cystoscopy was done. A left ureteral stent was placed. The procedure was well tolerated. It was successful. After the stent was placed, her pain has subsided. She did not require medications. She tolerated her diet. She was ambulating. The plan was once the left hydroureteronephrosis was relieved, the patient was to be referred to see Dr. Pendleton. Arrangements for an outpatient visit and sending all the information to him and also I asked the radiology department to copy the CT scan on a disc for her to hand carry. On 11/17/2016, she was doing quite well. She was pain free. Tolerating her diet. Ambulating. She was discharged home. We will make the arrangements for her appointment with Dr. Pendleton.
[2017-02-04] MEDS ORDERED: MAGN400T6 PO (08:19)
[2017-02-04] MEDS ORDERED: CHOL1000 PO (08:19)
[2017-02-04] MEDS ORDERED: POTA1CAP2 PO (08:19)
[2017-02-04] MEDS ORDERED: CETI10TA84 PO (08:19)
[2017-02-04] MEDS ORDERED: ACET-1256 PO (08:19)
[2017-02-04] MEDS ORDERED: MEGE40TA13 PO (08:19)
[2017-02-04] MEDS ORDERED: FOLI1TAB7 PO (08:19)
[2017-02-04] MEDS ORDERED: CLR10 PO (08:19)
[2017-02-18] MEDS ORDERED: OXYC-57 PO (11:00)
[2017-03-29] MEDS ORDERED: B-COTAB18 PO (08:41)
[2017-03-29] MEDS ORDERED: CALC500C70 PO (08:41)
[2017-03-29] MEDS ORDERED: CETI10TA84 PO (08:41)
[2017-03-29] MEDS ORDERED: RISE150T PO (08:41)
[2017-03-29] MEDS ORDERED: CHOL1000 PO (08:41)
[2017-04-25] MEDS ORDERED: IBAN150T PO (10:06)
[2017-04-29] MEDS ORDERED: PUMP1CAP PO (15:41)
[2017-05-21] MEDS ORDERED: PHEN-876 PO (13:17)
== END 2016-11-17 10:27 | disposition home or self-care (01) | DRG 694 ==
LOC: ENRESERVDT → ENRESERVTM → C.EDB 07:49 → C.MSN 13:10
PROVIDERS: ADMIT Internal Medicine; ATTEND Internal Medicine
PROC: 0T778DZ Dilation of Left Ureter with Intraluminal Device, Via Natural or Artificial Opening Endoscopic (ICD-10-PCS; principal; 2016-11-16 14:15)
DX: N13.1 Hydronephrosis with ureteral stricture, not elsewhere classified (principal); R19.00 Intra-abdominal and pelvic swelling, mass and lump, unspecified site; M81.0 Age-related osteoporosis without current pathological fracture; E66.9 Obesity, unspecified; Z79.899 Other long term (current) drug therapy; Z85.42 Personal history of malignant neoplasm of other parts of uterus; Z68.28 Body mass index [BMI] 28.0-28.9, adult

== ENCOUNTER → 2016-12-13 | Outpatient (CLI) | payer BC ==
[~2016-12-13] MED LIST: ACET-1256 PO; B-COTAB18 PO; CALC1CHW PO; CALC500C70 PO; CETI10TA84 PO; CHOL1000 PO; CLR10 PO; FOLI1TAB7 PO; GLUC10007 PO; IBAN150T PO; MAGN400T6 PO; MEGE40TA13 PO; MULT-506 PO; OMEG10007 PO; OXYC-57 PO; PHEN-876 PO; POTA1CAP2 PO; PUMP1CAP PO; RISE150T PO
--- NOTE | 2016-12-13 14:42 | MAMMOGRAPHY REPORT ---
BILATERAL DIGITAL SCREENING MAMMOGRAM TOMOSYNTHESIS WITH CAD: 12/13/2016 CLINICAL HISTORY: Routine screening. Patient has no complaints. TECHNIQUE: Breast tomosynthesis in addition to standard 2D mammography was performed. Current study was also evaluated with a Computer Aided Detection (CAD) system. COMPARISON: Comparison is made to exams dated: 12/12/2015 mammogram, 12/08/2014 mammogram, 12/11/2013 mamm ogram, 12/07/2013 mammogram, 12/04/2012 mammogram, and 10/30/2011 mammogram - [facility] BREAST COMPOSITION: There are scattered areas of fibroglandular density in both breasts. FINDINGS: No suspicious masses, calcifications, or areas of architectural distortion are noted in ei ther breast. There has been no significant interval change compared to prior exams. IMPRESSION: ACR BI-RADS CATEGORY 1: NEGATIVE There is no mammographic evidence of malignancy. A 1 year screening mammogram is recommended. The pa tient will receive written notification of the results. Approximately 10% of breast cancers are not detected with mammography. A negative mammographic report should not delay biopsy if a clinically suggestive mass is present. Cris Ontiveros M.D. /:12/13/2016 07:40:55 [employer] Teacher: Frances BROTHERS(Ryan)(Kayli), [facility] letter sent: Normal 1/2 BI-RADS Code: ACR BI-RADS Category 1: Negative
== END | disposition home or self-care (01) ==
LOC: C.MAMM 07:18
PROVIDERS: ATTEND Obstetrics & Gynecology Gynecologic Oncology
DX: Z12.31 Encounter for screening mammogram for malignant neoplasm of breast (principal)

== ENCOUNTER 2017-02-18 08:26 | Day surgery (SDC) | payer BC ==
[2017-02-04 07:57] VITALS: BMI 27.0
--- NOTE | 2017-02-04 08:30 | PAT Medication Instructions ---
Service Date Feb 04, 2017. Current Home Medication List Acetaminophen (Tylenol), 2 TAB PO Q6 PRN for Pain Calcium Carbonate-Vitamin D (Caltrate 600+D), 1 TAB PO QDL Cetirizine (Zyrtec), 10 MG PO QAM PRN for ALLERGIC REACTION Cholecalciferol (Vitamin D3), 1 TAB PO QDL Folic Acid (Folvite), 1 TAB PO QAM Glucosamine Sulfate (Glucosamine), 1,000 MG PO QAM Ibandronate Sodium (Boniva), 150 MG PO MONTHLY Loratadine (Claritin), 10 MG PO QAM PRN for ALLERGIC REACTION Magnesium Oxide (Mag-Ox), 400 MG PO DAILY PRN for Muscle Spasms Megestrol Acetate (Megace), 40 MG PO BID Multivitamin (Multivitamin), 1 TAB PO QDL Potassium Chloride (Potassium Chloride Er), 1 CAP PO QAM PRN for Muscle Spasms Medication Instructions For Your Scheduled Surgery - Hold the following medications 2 weeks prior to surgery: Glucosamine Sulfate (Glucosamine), 1,000 MG PO QAM - Hold the following medications the morning of surgery: Loratadine (Claritin), 10 MG PO QAM PRN for ALLERGIC REACTION Multivitamin (Multivitamin), 1 TAB PO QDL Potassium Chloride (Potassium Chloride Er), 1 CAP PO QAM PRN for Muscle Spasms Calcium Carbonate-Vitamin D (Caltrate 600+D), 1 TAB PO QDL Cetirizine (Zyrtec), 10 MG PO QAM PRN for ALLERGIC REACTION Cholecalciferol (Vitamin D3), 1 TAB PO QDL Folic Acid (Folvite), 1 TAB PO QAM Magnesium Oxide (Mag-Ox), 400 MG PO DAILY PRN for Muscle Spasms - Take the following medications the morning of surgery with a sip of water: Acetaminophen (Tylenol), 2 TAB PO Q6 PRN for Pain (may take if needed up to 4 hours prior to surgery) Megestrol Acetate (Megace), 40 MG PO BID - Take the following medications as scheduled the night before surgery: Acetaminophen (Tylenol), 2 TAB PO Q6 PRN for Pain Megestrol Acetate (Megace), 40 MG PO BID If you have any questions please call us at [phone] or [phone] or [phone]
[2017-02-04 10:44] LABS: URINE APPEARANCE CLEAR (CLEAR); URINE BILIRUBIN NEG (NEG); URINE COLOR YELLOW; URINE EPITHELIAL CELL AUTO >30 /lpf (0-5); URINE NITRITE NEG (NEG); URINE PH 7.5 (4.5-7.5); URINE SPECIFIC GRAVITY 1.017 (1.000-1.030); UROBILINOGEN NEG (NEG)
[2017-02-04 10:49] LABS: CALCIUM 9.6 mg/dl (8.5-10.1); CREATININE 0.87 mg/dl (0.60-1.20)
[2017-02-04 10:53] LABS: MANUAL MICROSCOPIC REQUIRED? NO; REVIEW REQ? NO; SULFASALICYLIC ACID POS (NEG)
[2017-02-04 10:55] LABS: BASO % 0.8 %; BASO ABS # 0.05 K/uL (0-0.2); COMPLETE YES; HEMATOCRIT 39.4 % (37-47); IG% 0.2 %; LYMPH % 36.7 %; LYMPH ABS # 2.38 K/uL (1.2-3.4); MEAN CELL VOLUME 88.7 fL (80-100); MEAN CORPUSCULAR HEMOGLOBIN 30.9 pg (25-34); MEAN CORPUSCULAR HGB CONC 34.8 g/dl (32-36); MEAN PLATELET VOLUME 9.8 fL (7.4-10.4); MONO % 9.6 %; NEUT % 48.7 %; PLATELET COUNT 357 K/uL (130-400); RED BLOOD COUNT 4.44 M/uL (4.2-5.4); WHITE BLOOD COUNT 6.48 K/uL (4.8-10.8)
[~2017-02-18] VITALS: Ht 160 cm; Wt 70.3 kg
[~2017-02-18 08:26] MED LIST changes: -B-COTAB18 PO; -CALC500C70 PO; +CIPROFLOXACIN / D5W 400 MG IV SCH; +LACTATED RINGER'S 1000ML 1,000 ML IV SCH; -OMEG10007 PO; -OXYC-57 PO; -PHEN-876 PO; -PUMP1CAP PO; -RISE150T PO
[2017-02-18 08:47] VITALS: BP 96/44; PULSE 70; TEMP 36.8; O2SAT 99; Ht 160 cm; Wt 70.3 kg
[2017-02-18] MEDS ORDERED: MIDAZOLAM HCL 1 MG/ML 2ML VIAL ONE (09:39)
[2017-02-18] MEDS ORDERED: LIDOCAINE HCL 2% 2 ML VIAL (20MG/ML) ONE (09:39)
[2017-02-18] MEDS ORDERED: FENTANYL CITRATE INJ 50 MCG/1 ML 2 ML VIAL ONE (09:39)
[2017-02-18] MEDS ORDERED: PROPOFOL IV EMULSION 10 MG/ML 20 ML VIAL IV ONE (09:39)
[2017-02-18] MEDS ORDERED: FENTANYL CITRATE INJ 50 MCG/1 ML 2 ML VIAL IV PRN (10:15)
[2017-02-18] MEDS ORDERED: EpHEDrine SULFATE INJ 50 MG/ML AMP IV PRN (10:15)
[2017-02-18] MEDS ORDERED: ONDANSETRON INJ 2 MG/ML 2 ML VIAL IV PRN (10:15)
[2017-02-18] MEDS ORDERED: ATROPINE SULFATE 0.1 MG/ML 5ML SYR IV PRN (10:15)
--- NOTE | 2017-02-18 10:18 | History & Physical Bridge Note ---
H&P Re-Evaluation Bridge Note: I have examined the patient, reviewed the History & Physical and in the interval since the performance of the History & Physical I have noted the following changes of clinical significance: No changes noted
[2017-02-18] MEDS ORDERED: CONRAY 30% 150ML BOTTLE ONE (10:32)
[2017-02-18] MEDS ORDERED: ONDANSETRON INJ 2 MG/ML 2 ML VIAL ONE (10:46)
[2017-02-18] MEDS ORDERED: OXYC-57 PO (11:00)
--- NOTE | 2017-02-18 11:01 | Discharge Instructions ---
Discharge Instructions Date of Service Feb 18, 2017. Visit Reason for Visit: Hydronephrosis Discharge Discharge Diagnosis / Problem: obstructed left kidney Discharge Goals Goal(s): Therapeutic intervention Activity Recommendations Activity Limitations: resume your previous activity (take it easy today) Anesthesia . Post Anesthesia Instructions: If you have had General Anesthesia or IV Sedation: * Do not drive today. * Resume driving when surgeon permits. * Do not make important decisions or sign legal documents today. * Call surgeon for: 1. Temperature elevations greater than 101 degrees F. 2. Uncontrollable pain. 3. Excessive bleeding. 4. Persistent nausea and vomiting. 5. Medication intolerance (nausea, vomiting or rash). * For nausea and vomiting use only clear liquids such as: tea, soda, bouillon until nausea subsides, then gradually increase diet as tolerated. * If you have any concerns or questions, call your surgeon's office. If physician is unavailable and it is an emergency, call 911 or go to the nearest emergency room. . Diet Recommendations Recommended Home Diet: resume previous diet Pending Studies Studies pending at discharge: no Medical Emergencies . Who to Call and When: Medical Emergencies: If at any time you feel your situation is an emergency, please call 911 immediately. . Non-Emergent Contact Non-Emergency issues call your: Urologist Call Non-Emergent contact if: temperature is above 101.5, your pain is not controlled . . "Provider Documentation" section prepared by Edgardo Judge. . [place] Drug Monitoring Program Search Results: patient reviewed within database
--- NOTE | 2017-02-18 11:12 | [facility] Operative Report ---
Operative Report Operative Date Feb 18, 2017. Pre-Operative Diagnosis Hydronephrosis, obstructed left kidney Post-Operative Diagnosis SAME Procedure(s) Performed Cystoscopy, Left Ureteral Stent Exchange Surgeon Dr. 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 She is being brought in for stent exchange Description of Procedure After the induction of an adequate level of intravenous sedation and appropriate timeout patient's lower abdomen and genitalia were prepped with Hibiclens draped in sterile fashion. Using a 20 Guyanese cystoscope routine cystoscopic exam was performed with the above-noted findings and the previously placed left stent was grasped and brought out through the meatus. 0.03 guidewire was then passed through this stent up the left ureter under fluoroscopic guidance the position in the renal pelvis the old stent was removed and an open-ended catheter was passed over the wire which was then removed and a retrograde pyelogram was performed confirming that the catheter was in the collecting system. Guidewire was then rethreaded through the open- ended catheter under fluoroscopic guidance to position the renal pelvis. The open-ended catheter was removed the guidewire was retracted into the cystoscope a 6 Guyanese by 26 cm stent was passed up the left ureter under fluoroscopic guidance to position the renal pelvis confirmed by fluoroscopy. The guidewire was removed there was a good curl at the bladder level. Patient bladder was drained cystoscopy sheath removed all needle sponge and instrument counts were correct at the end of the case patient tolerated the procedure well and was taken to the recovery room in stable condition I attest to the content of the Intraoperative Record and any orders documented therein. Any exceptions are noted below.
--- NOTE | 2017-02-18 11:14 | Anesthesiology Progress Note ---
Anesthesia Post Op Note Date & Time Feb 18, 2017 at 11:14 Vital Signs Pain Intensity: 0 Vital Signs Past 12 Hours Date Time Temp Pulse Resp B/P (MAP) Pulse Ox O2 Delivery O2 Flow Rate FiO2 02/18/17 10:55 36.8 68 10 121/78 100 Mask 10 02/18/17 08:47 36.8 70 20 96/44 (61) 99 Room Air Notes Mental Status: alert / awake / arousable, participated in evaluation Pt Amnestic to Procedure: Yes Nausea / Vomiting: adequately controlled Pain: adequately controlled Airway Patency, RR, SpO2: stable & adequate BP & HR: stable & adequate Hydration State: stable & adequate Anesthetic Complications: no major complications apparent
[2017-02-18] MEDS ORDERED: OXYCODONE/ACETAMINOPHEN 5-325 TAB PO PRN (11:15)
--- NOTE | 2017-02-18 11:20 | DIAGNOSTIC IMAGING REPORT ---
RETROGRADE INCLUDES KUB CLINICAL HISTORY: 56 years-old Female presenting with LEFT STENT EXCHANGE. TECHNIQUE: 7 fluoroscopic spot image(s) obtained as part of intraoperative procedure. COMPARISON: 11/16/2016. FINDINGS/IMPRESSION: A left ureteral stent is noted. The left renal collecting system was opacified with contrast. Less dilatation of the collecting system than on prior exam. 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 The stent remain in place at the conclusion of the fluoroscopic images. Surgical clips noted in the left hemipelvis as well as multiple phleboliths. Please see surgical report for further details. Fluoroscopy dosage (mGy): Not available. Fluoroscopy time: 19 seconds. Number of fluoroscopic spot images: 7. Electronically signed by: Josh Whipple M.D. 02/18/2017 11:19 AM Dictated Date/Time: 02/18/2017 11:18 AM
[2017-02-18 11:22] VITALS: BP 123/71; PULSE 60; TEMP 36.5; O2SAT 99
[2017-02-18 11:48] VITALS: BP 118/70; PULSE 64; TEMP 36.6; O2SAT 99
[2017-03-29] MEDS ORDERED: CETI10TA84 PO (08:41)
[2017-03-29] MEDS ORDERED: CHOL1000 PO (08:41)
[2017-03-29] MEDS ORDERED: RISE150T PO (08:41)
[2017-03-29] MEDS ORDERED: B-COTAB18 PO (08:41)
[2017-03-29] MEDS ORDERED: CALC500C70 PO (08:41)
== END 2017-02-18 11:52 | disposition home or self-care (01) ==
LOC: C.ACU 08:26
PROVIDERS: ATTEND Urology
DX: N13.1 Hydronephrosis with ureteral stricture, not elsewhere classified (principal); Z85.42 Personal history of malignant neoplasm of other parts of uterus; M85.80 Other specified disorders of bone density and structure, unspecified site

== ENCOUNTER → 2017-03-19 | Outpatient (CLI) | payer BC ==
[~2017-03-19] MED LIST changes: +B-COTAB18 PO; +CALC500C70 PO; -CIPROFLOXACIN / D5W 400 MG IV SCH; -LACTATED RINGER'S 1000ML 1,000 ML IV SCH; +OPTIRAY 320 IV PRN; +OXYC-57 PO; +RISE150T PO
--- NOTE | 2017-03-19 09:57 | DIAGNOSTIC IMAGING REPORT ---
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 TECHNIQUE: Multidetector CT of the abdomen and pelvis was performed after the administration of oral and intravenous contrast. IV contrast: 92 mL of Optiray 320. A dose lowering technique was used consistent with the principles of ALARA (as low as reasonably achievable). COMPARISON: 11/16/2016. CT DOSE (mGy.cm): The estimated cumulative dose is 289.44 mGy.cm. FINDINGS: [employer] topogram: Left ureteral stent now in place. Lung bases: Two solid pulmonary nodules noted at the left lung base, one measuring 5 mm (series 3 image 42) and the second more lateral measuring 8 mm (series 3 image 39), not significantly changed from prior exam. Additional solid pulmonary nodule noted in the lingula measuring 7 mm (series 3 image 8), stable from prior. Solid pulmonary nodule in the right middle lobe measures 4 mm, unchanged (series 3 image 38). These are not significantly changed since 2007. Mosaic attenuation at the lung bases could suggest small airways disease. Normal heart size. No pericardial or pleural effusion. Liver: Calcification and altered liver contour at the lateral right hepatic dome, possibly posttraumatic, postsurgical or evidence of old granulomatous disease. -Hypodensity in the segment 7 was only vaguely apparent on the prior exam and is indeterminate (series 3 image 51). -Additional hypodense lesion at the inferior right hepatic lobe (series 3 image 130), not present on prior exam and indeterminate. -Small hypodensity more centrally in the right hepatic lobe (series 3 image 59), which was present since 2006, likely hepatic cyst or hamartoma. Patent hepatic vasculature. Biliary: No intrahepatic or extrahepatic biliary ductal dilatation. Normal gallbladder. Pancreas: Normal. Spleen: Normal. Adrenal glands: Normal. Kidneys and ureters: Few hypodensities in the left kidney, likely cysts. The left renal collecting system has been decompressed with a ureteral stent. Urothelial thickening is evident. The right ureter is nondilated. Bladder: Incompletely evaluated secondary to underdistention. Pelvic organs: The patient is status post hysterectomy and bilateral salpingo-oophorectomy. Enhancing ovoid soft tissue mass in the region of the left adnexa near the vaginal cuff (3.1 x 2.3 cm, previously 3.3 x 2.1 cm). An adjacent more superior enhancing soft tissue nodule (2.3 x 2.3 cm, previously 2.7 x 2.7 cm) in the region of the left iliac bifurcation is again noted, not significantly changed in configuration and grossly stable from prior exam. Bowel: Normal. No bowel obstruction. Peritoneal cavity: No free fluid or intraperitoneal gas. Vasculature: Aorta and IVC patent and normal in caliber. Lymph nodes: Enlarged left external iliac lymph node measuring 2.8 x 0.7 cm, previously 2.7 x 0.7 cm, unchanged. The soft tissue nodule in the region of the left iliac bifurcation mentioned able may also represent a pathologically enlarged lymph node. No other enlarged lymph nodes in the abdomen or pelvis. Abdominal wall: Normal. Musculoskeletal: Normal. IMPRESSION: 1. Status post left renal collecting system decompression with a left ureteral stent. Urothelial thickening is likely reactive to the stent, although infection cannot be excluded. Correlate with urinalysis. 2. Enhancing soft tissue mass in the left adnexa adjacent to the vaginal cuff is not significant changed since the prior exam. Nearby enhancing soft tissue nodularity in the left iliac region may represent additional pelvic sidewall disease versus metastatic lymphadenopathy, which are also not grossly changed in appearance. 3. Hypodense liver lesions, some not present on prior exam from November 2016. These are suspicious for metastatic spread of disease. Further confirmation with liver MR could be considered as clinically warranted. Electronically signed by: Josh Whipple M.D. 03/19/2017 9:55 AM Dictated Date/Time: 03/19/2017 9:34 AM
== END | disposition home or self-care (01) ==
LOC: C.CTS 08:14
PROVIDERS: ATTEND Obstetrics & Gynecology Gynecologic Oncology
DX: C54.9 Malignant neoplasm of corpus uteri, unspecified (principal); K76.9 Liver disease, unspecified; Z98.890 Other specified postprocedural states

== ENCOUNTER → 2017-03-28 | Outpatient (CLI) | payer BC ==
[~2017-03-28] MED LIST changes: +GADOXETATE DISODIUM (NON-WT BASED PROCEDURE) IV PRN; -OPTIRAY 320 IV PRN
--- NOTE | 2017-03-28 08:11 | DIAGNOSTIC IMAGING REPORT ---
MRI OF THE ABDOMEN COMBO CLINICAL HISTORY: Follow-up liver lesion.. History of uterine sarcoma. COMPARISON STUDY: Abdominal CT scans and 03/19/2017 and 10/07/2015. TECHNIQUE: MRI of the abdomen is performed transverse T1 and T2-weighted sequences in the axial and coronal planes. Contrast enhanced sequences were acquired following the IV administration of 10 cc of Eovist. MRCP images were acquired. Subtraction imaging was utilized. FINDINGS: Lower chest: Subcentimeter pulmonary nodules are identified at the left lung base. No pleural effusion is identified. The heart is normal in size and without pericardial effusion. Liver: The liver is normal in size, contour, and signal intensity. No intrahepatic biliary ductal dilatation is seen. The hepatic veins and portal veins are patent. There are foci of cyst susceptibility artifact in the subcapsular right lobe. These correspond to OR calcifications when correlated with the 03/19/2017 CT scan. There are 3 hepatic lesions identified. The largest lesion is seen in segment VII and measures 2.2 cm. There is an additional 8 mm lesion segment VII and a 9 mm lesion is seen in segment (delayed Eovist images #34, #36, and #69). These lesions are faintly T2 hyperintense, do not show discernible contrast enhancement, show restricted diffusion, and do not retain Eovist on the delayed series. These lesions were seen by CT on 03/19/2017 but are new from 10/07/2015. Gallbladder: No gallstones are identified. The common bile duct is normal in caliber measuring up to 4 mm. There is no evidence of choledocholithiasis. Spleen: Normal in size and signal intensity. Pancreas: The pancreas is normal as imaged. The pancreas duct is normal in caliber. Adrenal glands: Unremarkable. Kidneys: The kidneys are normal in size and without hydronephrosis. The kidneys enhance and excrete symmetrically. Subcentimeter cysts are noted in the left kidney. Abdominal aorta: Normal in course and caliber. Bowel: Visualized portions of the small bowel and colon show no evidence of obstruction. Peritoneum: There is no abdominal ascites. Lymphadenopathy: None. Skeletal structures: Visualized skeletal structures times are normal marrow signal intensity. IMPRESSION: 1. There are at least 3 hepatic lesions identified as detailed above, which correspond to the lesions seen by CT on 03/19/2017. These are new from 10/07/2015 and do not demonstrate typically benign kinetics. These are highly concerning for hepatic metastases given the reported cancer history. 2. Subcentimeter pulmonary nodules are seen in the left lung base. These are also concerning for metastatic disease and were better characterized on the recent CT scan. 3. Additional findings as above. Electronically signed by: Power Yun M.D. 03/28/2017 8:10 AM Dictated Date/Time: 03/28/2017 7:54 AM
== END | disposition home or self-care (01) ==
LOC: C.MRI 06:24
PROVIDERS: ATTEND Obstetrics & Gynecology Gynecologic Oncology
DX: K76.9 Liver disease, unspecified (principal); R91.8 Other nonspecific abnormal finding of lung field; Z85.42 Personal history of malignant neoplasm of other parts of uterus

== ENCOUNTER → 2017-04-08 | Outpatient (CLI) | payer BC ==
[~2017-04-08] MED LIST changes: -CALC1CHW PO; +GADAVIST IV PRN; -GADOXETATE DISODIUM (NON-WT BASED PROCEDURE) IV PRN; -GLUC10007 PO; -IBAN150T PO; -OXYC-57 PO
--- NOTE | 2017-04-08 14:47 | DIAGNOSTIC IMAGING REPORT ---
PELVIS MRI HISTORY: ENDOMETRIAL CANCER/SEE ORDER FOR ADDITIONAL ORDERS TECHNIQUE: Multiplanar multisequence MRI of the pelvis was performed both before and after the intravenous administration of contrast. COMPARISON STUDY: Abdomen and pelvis CT 03/19/2017. FINDINGS: Confirmation of the 6.1 x 3.1 x 2.5 cm lobular soft tissue extending from the left-sided the vaginal cuff to the left pelvic sidewall. This abuts the iliac bifurcation. This almost completely encases the left ureter. However, there is no ureteral dilatation. There is mild urothelial enhancement within the left ureter. There is also a fingerlike extension of soft tissue along the left pelvic sidewall anterior to the iliac vessels which measures 2.7 cm in length. This is contiguous with the dominant soft tissue abnormality. These findings likely represent metastatic disease. The bladder is unremarkable. No enlarged right pelvic lymph nodes. No bowel wall thickening or obstruction. The visualized osseous structures show no suspicious lytic or blastic osseous lesions. IMPRESSION: Confirmation of the 6.1 x 3.1 x 2.5 cm lobular soft tissue extending from the left side of the vaginal cuff to the pelvic sidewall. This is consistent with metastatic disease. This results in near complete encasement of the left ureter with mild left urothelial thickening. No associated dilatation of the ureter. The urothelial thickening is nonspecific and could be due to metastatic disease or posttreatment changes. Electronically signed by: Jordin Ruiz M.D. 04/08/2017 2:46 PM Dictated Date/Time: 04/08/2017 2:31 PM
== END | disposition home or self-care (01) ==
LOC: C.MRI 12:36
PROVIDERS: ATTEND Obstetrics & Gynecology Gynecologic Oncology
DX: C55 Malignant neoplasm of uterus, part unspecified (principal); R93.8 Abnormal findings on diagnostic imaging of other specified body structures; R93.41 Abnormal radiologic findings on diagnostic imaging of renal pelvis, ureter, or bladder

== ENCOUNTER → 2017-05-21 | Day surgery (SDC) | payer BC ==
[2017-04-25 10:02] VITALS: BMI 27.0
[~2017-05-21] VITALS: Ht 160 cm; Wt 70.5 kg
[~2017-05-21] MED LIST changes: +ATROPINE SULFATE 0.1 MG/ML 5ML SYR IV PRN; +CIPROFLOXACIN / D5W 400 MG IV SCH; +CONRAY 30% 150ML BOTTLE ONE; +EpHEDrine SULFATE INJ 50 MG/ML AMP IV PRN; +FENTANYL CITRATE INJ 50 MCG/1 ML 2 ML VIAL IV PRN; +FENTANYL CITRATE INJ 50 MCG/1 ML 2 ML VIAL ONE; +FLUMAZENIL 0.1 MG/1 ML 10 ML VIAL IV PRN; -GADAVIST IV PRN; +IBAN150T PO; +LABETALOL HCL IV 5 MG/ML 20ML IV PRN; +LACTATED RINGER'S 1000ML 1,000 ML IV SCH; +LIDOCAINE HCL 2% 2 ML VIAL (20MG/ML) ONE; +MIDAZOLAM HCL 1 MG/ML 2ML VIAL ONE; +NALOXONE HCL 0.4 MG/1 ML VIAL/CARP IV PRN; +ONDANSETRON INJ 2 MG/ML 2 ML VIAL IV PRN; +ONDANSETRON INJ 2 MG/ML 2 ML VIAL ONE; +OXYCODONE/ACETAMINOPHEN 5-325 TAB PO PRN; +PHEN-876 PO; +PROPOFOL IV EMULSION 10 MG/ML 20 ML VIAL IV ONE; +PUMP1CAP PO; -RISE150T PO
[2017-05-21 09:42] VITALS: BP 150/76; PULSE 69; TEMP 36.5; O2SAT 99; Ht 160 cm; Wt 70.5 kg
--- NOTE | 2017-05-21 13:18 | Discharge Instructions ---
Discharge Instructions Date of Service May 21, 2017. Visit Reason for Visit: Hydronephrosis Discharge Discharge Diagnosis / Problem: left hydronephrosis Discharge Goals Goal(s): Therapeutic intervention Activity Recommendations Activity Limitations: resume your previous activity (take it easy today) Shower/Bathe: no limitations Driving or Machine Use: resume 1 day after discharge Anesthesia . Post Anesthesia Instructions: If you have had General Anesthesia or IV Sedation: * Do not drive today. * Resume driving when surgeon permits. * Do not make important decisions or sign legal documents today. * Call surgeon for: 1. Temperature elevations greater than 101 degrees F. 2. Uncontrollable pain. 3. Excessive bleeding. 4. Persistent nausea and vomiting. 5. Medication intolerance (nausea, vomiting or rash). * For nausea and vomiting use only clear liquids such as: tea, soda, bouillon until nausea subsides, then gradually increase diet as tolerated. * If you have any concerns or questions, call your surgeon's office. If physician is unavailable and it is an emergency, call 911 or go to the nearest emergency room. . Diet Recommendations Recommended Home Diet: resume previous diet Procedures Procedures Performed: Cystoscopy, Retrograde Pyelogram, Left Stent Exchange Pending Studies Studies pending at discharge: no Medical Emergencies . Who to Call and When: Medical Emergencies: If at any time you feel your situation is an emergency, please call 911 immediately. . Non-Emergent Contact Non-Emergency issues call your: Urologist Call Non-Emergent contact if: temperature is above 101.5 . . "Provider Documentation" section prepared by Edgardo Judge. . [place] Drug Monitoring Program Search Results: patient reviewed within database
--- NOTE | 2017-05-21 13:25 | Anesthesiology Progress Note ---
Anesthesia Post Op Note Date & Time May 21, 2017 at 13:24 Vital Signs Pain Intensity: 0 Vital Signs Past 12 Hours Date Time Temp Pulse Resp B/P (MAP) Pulse Ox O2 Delivery O2 Flow Rate FiO2 05/21/17 09:42 36.5 69 18 150/76 (100) 99 Room Air Notes Mental Status: alert / awake / arousable, participated in evaluation Pt Amnestic to Procedure: Yes Nausea / Vomiting: adequately controlled Pain: adequately controlled Airway Patency, RR, SpO2: stable & adequate BP & HR: stable & adequate Hydration State: stable & adequate Anesthetic Complications: no major complications apparent
--- NOTE | 2017-05-21 13:42 | DIAGNOSTIC IMAGING REPORT ---
RETROGRADE INCLUDES KUB HISTORY: 56 years-old Female LEFT STENT status post placement of a left ureteral stent. History of endometrial carcinoma COMPARISON: Pelvic MRI 04/08/2017 TECHNIQUE: 4 spot fluoroscopic images of the left upper abdomen were obtained utilizing 19.6 seconds fluoroscopy time FINDINGS: First image demonstrates placement of a catheter into the region of the left renal pelvis. Second image demonstrates contrast opacification of the left renal pelvis and collecting system which is mildly dilated with calyceal blunting. No focal filling defects identified. Third image demonstrates a guidewire within the renal pelvis and the last image demonstrates placement of a left ureteral stent with the distal portion of the stent not imaged. IMPRESSION: Fluoroscopic assistance as above. Please see procedural report for further details. The above report was generated using voice recognition software. It may contain grammatical, syntax or spelling errors. Electronically signed by: Prashant Caicedo M.D. 05/21/2017 1:41 PM Dictated Date/Time: 05/21/2017 1:38 PM
[2017-05-21 13:45] VITALS: BP 116/69; PULSE 62; TEMP 36.8; O2SAT 99
--- NOTE | 2017-05-21 13:59 | [facility] Operative Report ---
Operative Report Operative Date May 21, 2017. Pre-Operative Diagnosis Left Hydronephrosis Post-Operative Diagnosis same as pre-operative Procedure(s) Performed Cystoscopy, Retrograde Pyelogram, Left Stent Exchange Surgeon Dr. Edgardo Judge Estimated Blood Loss 0 Findings Cystoscopy showed a normal urethra bladder showed some edema from the previously placed stent retrograde on the left showed some hydronephrosis Specimens none per surgeon Drains 6 Portuguese by 26 cm left ureteral stent Anesthesia MAC Complication(s) None Disposition Recovery Room / PACU Indications Patient's 48-year-old white female who has left ureteral obstruction secondary to metastatic deposit. She's being managed with stent changes. She is being brought in now for stent change Description of Procedure After the induction of an adequate level of intravenous sedation and appropriate timeout patient was placed in the dorsal lithotomy position. Lower abdomen genitalia were prepped with Hibiclens and draped in a sterile fashion. Using a 22 Portuguese cystoscope routine cystoscopic exam performed with the above- noted findings than the previously placed stent was grasped and brought out through the urethra. An .038 guidewire was passed through the stent up the left ureter under fluoroscopic guidance to position in the renal pelvis the stent was removed. Using a 5 Portuguese Pollack catheter left retrograde was performed. The guidewire was then rethreaded through the Pollack catheter Pollack catheter was removed the guidewire was rethreaded through the cystoscope 6 Portuguese by 26 cm stent was passed up the left ureter under fluoroscopic guidance to position in the renal pelvis. Guidewire was removed it was a good curl at the bladder level. Patient's bladder was then drained cystoscope and sheath removed. All needle sponge and instrument counts were correct at the end of the case. Patient tolerated the procedure was taken to the recovery room in stable condition I attest to the content of the Intraoperative Record and any orders documented therein. Any exceptions are noted below.
[2017-05-21 14:15] VITALS: BP 130/75; PULSE 66; TEMP 36.5; O2SAT 99
== END | disposition home or self-care (01) ==
LOC: C.ACU 08:56
PROVIDERS: ATTEND Urology
DX: N13.1 Hydronephrosis with ureteral stricture, not elsewhere classified (principal); Z96.0 Presence of urogenital implants; M85.80 Other specified disorders of bone density and structure, unspecified site

== ENCOUNTER 2017-06-05 07:08 | Emergency (ER) | payer BC ==
[~2017-06-05] VITALS: Ht 160 cm; Wt 71.1 kg
[~2017-06-05 07:08] MED LIST changes: -ATROPINE SULFATE 0.1 MG/ML 5ML SYR IV PRN; -CIPROFLOXACIN / D5W 400 MG IV SCH; -CLR10 PO; -CONRAY 30% 150ML BOTTLE ONE; -EpHEDrine SULFATE INJ 50 MG/ML AMP IV PRN; -FENTANYL CITRATE INJ 50 MCG/1 ML 2 ML VIAL IV PRN; -FENTANYL CITRATE INJ 50 MCG/1 ML 2 ML VIAL ONE; -FLUMAZENIL 0.1 MG/1 ML 10 ML VIAL IV PRN; -LABETALOL HCL IV 5 MG/ML 20ML IV PRN; -LACTATED RINGER'S 1000ML 1,000 ML IV SCH; -LIDOCAINE HCL 2% 2 ML VIAL (20MG/ML) ONE; -MIDAZOLAM HCL 1 MG/ML 2ML VIAL ONE; -NALOXONE HCL 0.4 MG/1 ML VIAL/CARP IV PRN; -ONDANSETRON INJ 2 MG/ML 2 ML VIAL IV PRN; -ONDANSETRON INJ 2 MG/ML 2 ML VIAL ONE; -OXYCODONE/ACETAMINOPHEN 5-325 TAB PO PRN; -PHEN-876 PO; -PROPOFOL IV EMULSION 10 MG/ML 20 ML VIAL IV ONE
[2017-06-05 07:09] VITALS: Ht 160 cm; Wt 71.1 kg
[2017-06-05] MEDS ORDERED: HYDROmorphone INJ 1 MG/ML SYR IV STA (07:22)
[2017-06-05] MEDS ORDERED: SODIUM CHLORIDE 0.9% 1000ML 1,000 ML IV STA (07:22)
[2017-06-05] MEDS ORDERED: ONDANSETRON INJ 2 MG/ML 2 ML VIAL IV STA (07:22)
[2017-06-05] MEDS ORDERED: OPTIRAY 320 IV PRN (07:45)
--- NOTE | 2017-06-05 07:46 | EMERGENCY ROOM VISIT NOTE ---
History Report prepared by Kailey: Kristie Carmona Under the Supervision of: Dr. Tommy Bauman D.O. First contact with patient: 07:15 Chief Complaint: FLANK PAIN Stated Complaint: DOWN LEFT SIDE LEFT FLANK PAIN History of Present Illness The patient is a 56 year old female who presents to the Emergency Room with complaints of persistent left flank pain that began this morning. She currently rates her discomfort as a 6/10 in severity. Per the patient's , the patient has a history of endometrial cancer, noting that the patient is currently under treatment for the second time. The patient states that she has a 6 cm tumor on her left ureter that is compressing from the outside. She states that she was evaluated once in the past for similar pain, noting that she had a stent to help alleviate the compression. The patient states that this had alleviated her symptoms in the past. She states that she has had her stent replaced three times, noting that the last time was May 21. The patient additionally reports left lower abdominal pain. She states that this morning she was diaphoretic and nauseous. The patient states that she last had an MRI of her abdomen and pelvis. She reports a history of an appendectomy, but states that she still has her gallbladder. The patient denies headache, change in vision, fevers, chest pain, shortness of breath, vomiting, diarrhea, pain with urination, and melena. Source of History: patient, spouse/significant other () Onset: this mroning Position: other (left flank) Symptom Intensity: 6/10 Timing: other Associated Symptoms: + diaphoresis, + nausea, + abdominal pain Review of Systems See HPI for pertinent positives & negatives. A total of 10 systems reviewed and were otherwise negative. 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 H/O ENDOMETRIAL SARCOMA (3) L URETERAL OBST. PELVIC MASSES. H/O ENDOMETRIAL SARCOMA Social History Smoking Status: Never Smoker Marital Status: Housing Status: lives with family Current/Historical Medications Scheduled B-Complex Vitamins (Vitamin B Complex), 1 TAB PO QAM Calcium/Vitamin D (Os-Surendra 500 Plus D), 2 TAB PO QPM Cetirizine (Zyrtec), 10 MG PO PRN Cholecalciferol (Vitamin D3), 1.5 TAB PO QAM Folic Acid (Folvite), 1 TAB PO QAM Ibandronate Sodium (Boniva), 150 MG PO MONTHLY Megestrol Acetate (Megace), 40 MG PO BID Multivitamin (Multivitamin), 1 TAB PO 2-3XWEEK Pumpkin Seed-Soy Germ (Azo Bladder Control/Go-Le), 1 CAP PO TID Scheduled PRN Acetaminophen (Tylenol), 2 TAB PO Q6 PRN for Pain Magnesium Oxide (Mag-Ox), 400 MG PO DAILY PRN for Muscle Spasms Potassium Chloride (Potassium Chloride Er), 1 CAP PO QAM PRN for Muscle Spasms Allergies Coded Allergies: No Known Allergies (Unverified , 06/05/17) Physical Exam Vital Signs Date Time Temp Pulse Resp B/P (MAP) Pulse Ox O2 Delivery O2 Flow Rate FiO2 06/05/17 11:37 36.4 82 18 151/73 95 06/05/17 09:19 62 18 142/80 97 Room Air 06/05/17 07:09 36.4 84 18 166/81 97 Room Air Physical Exam GENERAL: Sitting up in bed, in moderate distress, tearful, holding left lower quadrant, alert, well appearing, well nourished, non-toxic EYE EXAM: normal conjunctiva. OROPHARYNX: no exudate, no erythema, lips, buccal mucosa, and tongue normal and mucous membranes are moist NECK: supple, no nuchal rigidity, no adenopathy, non-tender LUNGS: Clear to auscultation. Normal chest wall mechanics HEART: no murmurs, S1 normal and S2 normal ABDOMEN: Minimal tenderness in left lower quadrant/left flank, abdomen soft, normo-active bowel sounds, no masses, no rebound or guarding. BACK: Back is symmetrical on inspection and there is no deformity, no midline tenderness, no CVA tenderness. SKIN: no rashes and no bruising UPPER EXTREMITIES: upper extremities are grossly normal. LOWER EXTREMITIES: No pitting edema. NEURO EXAM: Normal sensorium, cranial nerves II-XII grossly intact, normal speech, no gross weakness of arms, no gross weakness of legs. Medical Decision & Procedures ER Provider Diagnostic Interpretation: CT:Per my review, radiologist interpretation. CT SCAN OF THE ABDOMEN AND PELVIS WITH IV CONTRAST CLINICAL HISTORY: Left flank pain. History of uterine sarcoma. COMPARISON STUDY: Abdominal CT dated 03/19/2017. MRI of the liver dated 03/28/2017. TECHNIQUE: Following the IV administration of 115 cc of Optiray 320, CT scan of the abdomen and pelvis is performed from the lung bases to the proximal femora. Images are reviewed in the axial, sagittal, and coronal planes. IV contrast was administered without complication. A dose lowering technique was utilized adhering to the principles of ALARA. CT DOSE: 403.81 mGy.cm FINDINGS: Lung bases: The heart is normal in size and without pericardial effusion. There are at least 3 foci of nodularity at the left lung base which measure up to 7 mm. There is no airspace consolidation or pleural effusion. There is a tiny hiatal hernia. Liver: The contrast-enhanced liver is normal in size, contour, and attenuation. There is no intrahepatic biliary ductal dilatation. The hepatic veins and portal veins are patent. A 1.3 cm low-attenuation lesion is again seen in the right lobe of the liver on image #47. At least 3 additional subcentimeter lesions are identified. These were better characterized on the 03/28/2017 MRI. Capsular calcifications are observed. Fatty infiltration is seen adjacent to falciform ligament. Gallbladder: Unremarkable. Spleen: Normal in size and attenuation. Pancreas: Unremarkable. 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 The left adrenal gland is normal in appearance. Kidneys: The contrast enhanced kidneys are normal in size. A left ureteral stent is in appropriate position. There is moderate to severe left hydroureteronephrosis. The ureter is dilated to an obstructing mass lesion in the left hemipelvis. There is nonspecific urothelial thickening and enhancement identified in the left kidney with associated perinephric and periureteric stranding. Perfusion of left kidney is slightly heterogeneous. 2 subcentimeter cortical hypodensities in the left kidney likely represent cysts but are too small for definitive characterization. There is no right-sided hydronephrosis. Abdominal vasculature: The abdominal aorta is normal in course and caliber. Bowel: The small bowel and colon are normal in course and caliber. The appendix is well-visualized and normal. Peritoneum: There is no intraperitoneal free air or abdominal ascites. Lymphadenopathy: None. Pelvic viscera: Although decompressed, the bladder wall appears thickened and there is mild pericystic inflammation. The end of a left ureteral stent is present in the bladder. The uterus is surgically absent. There is a 3.2 x 2.5 cm left adnexal lesion seen on image #331. An adjacent lesion measuring 2.5 x 2.5 cm seen on image #307 encases the distal left ureter. Skeletal structures: The skeletal structures are osteopenic. No lytic or blastic lesions are seen. There are healed left-sided rib fractures. There is a minimal superior endplate compression deformity of T10. IMPRESSION: 1. A left ureteral stent is in appropriate position. There is moderate to severe left hydroureteronephrosis, significantly increased from 03/19/2017. This suggests stent dysfunction. 2. There is nonspecific urothelial thickening and enhancement involving the left renal pelvis and the left ureter with surrounding perinephric and periureteric inflammation. This may be related to obstruction. Correlate clinically and with urinalysis for evidence of superimposed urinary tract infection. 3. Although decompressed, the bladder wall appears thickened and there is pericystic inflammation. Again, correlate with clinical findings and urinalysis for evidence of cystitis. 4. There are 2 lesions identified in the left hemipelvis, one of which encases the left ureter. These are overall similar in appearance to the 03/19/2017 examination. 5. Small hepatic lesions are again seen and were better characterized on the 03/19/2017 MRI. These remain concerning for hepatic metastatic disease. 6. There are at least 3 foci of nodularity identified at the left lung base measuring up to 7 mm. 7. Additional findings as above. Electronically signed by: Power Yun M.D. 06/05/2017 8:58 AM Dictated Date/Time: 06/05/2017 8:10 AM Laboratory Results 06/05/17 07:45 Red Blood Count 4.37, Mean Corpuscular Volume 92.0, Mean Corpuscular Hemoglobin 30.7, Mean Corpuscular Hemoglobin Concent 33.3, Mean Platelet Volume 9.3, Neutrophils (%) (Auto) 67.6, Lymphocytes (%) (Auto) 18.7, Monocytes (%) (Auto) 9.6, Eosinophils (%) (Auto) 2.8, Basophils (%) (Auto) 0.6, Neutrophils # (Auto) 4.59, Lymphocytes # (Auto) 1.27, Monocytes # (Auto) 0.65, Eosinophils # (Auto) 0.19, Basophils # (Auto) 0.04 06/05/17 07:45 Test 06/05/17 07:41 06/05/17 07:45 06/05/17 09:15 Bedside Hemoglobin 13.6 g/dl (12.0-16.0) Bedside Hematocrit 40 % (37-47) Bedside Sodium 143 mEq/L (135-144) Bedside Potassium 3.7 mEq/L (3.3-5.0) Bedside Chloride 106 mEq/L (101-112) Bedside Total CO2 27 mEq/l (24-31) Bedside Blood Urea Nitrogen 11 mg/dl (7-18) Bedside Creatinine 0.9 mg/dl (0.6-1.3) Bedside Glucose (other) 113 mg/dl (70-99) Bedside Ionized Calcium (Hannah) 1.34 mmol/l (1.12-1.32) White Blood Count 6.79 K/uL (4.8-10.8) Red Blood Count 4.37 M/uL (4.2-5.4) Hemoglobin 13.4 g/dL (12.0-16.0) Hematocrit 40.2 % (37-47) Mean Corpuscular Volume 92.0 fL (80-100) Mean Corpuscular Hemoglobin 30.7 pg (25-34) Mean Corpuscular Hemoglobin Concent 33.3 g/dl (32-36) Platelet Count 382 K/uL (130-400) Mean Platelet Volume 9.3 fL (7.4-10.4) Neutrophils (%) (Auto) 67.6 % Lymphocytes (%) (Auto) 18.7 % Monocytes (%) (Auto) 9.6 % Eosinophils (%) (Auto) 2.8 % Basophils (%) (Auto) 0.6 % Neutrophils # (Auto) 4.59 K/uL (1.4-6.5) Lymphocytes # (Auto) 1.27 K/uL (1.2-3.4) Monocytes # (Auto) 0.65 K/uL (0.11-0.59) Eosinophils # (Auto) 0.19 K/uL (0-0.5) Basophils # (Auto) 0.04 K/uL (0-0.2) RDW Standard Deviation 46.9 fL (36.4-46.3) RDW Coefficient of Variation 14.0 % (11.5-14.5) Immature Granulocyte % (Auto) 0.7 % Immature Granulocyte # (Auto) 0.05 K/uL (0.00-0.02) Anion Gap 8.0 mmol/L (3-11) Est Creatinine Clear Calc Drug Dose 61.7 ml/min Estimated GFR () 77.5 Estimated GFR (Non- 66.9 BUN/Creatinine Ratio 12.1 (10-20) Calcium Level 10.3 mg/dl (8.5-10.1) Total Bilirubin 0.5 mg/dl (0.2-1) Direct Bilirubin 0.1 mg/dl (0-0.2) Aspartate Amino Transf (AST/SGOT) 13 U/L (15-37) Alanine Aminotransferase (ALT/SGPT) 35 U/L (12-78) Alkaline Phosphatase 85 U/L (45-117) Total Protein 7.5 gm/dl (6.4-8.2) Albumin 4.0 gm/dl (3.4-5.0) Lipase 81 U/L (73-393) Urine Color DK YELLOW Urine Appearance CLEAR (CLEAR) Urine pH 7.0 (4.5-7.5) Urine Specific [place] > 1.045 (1.000-1.030) Urine Protein 1+ (NEG) Urine Glucose (UA) NEG (NEG) Urine Ketones NEG (NEG) Urine Occult Blood 2+ (NEG) Urine Nitrite POS (NEG) Urine Bilirubin NEG (NEG) Urine Urobilinogen NEG (NEG) Urine Leukocyte Esterase SMALL (NEG) Urine WBC (Auto) 5-10 /hpf (0-5) Urine RBC (Auto) 10-30 /hpf (0-4) Urine Hyaline Casts (Auto) 0 /lpf (0-5) Urine Epithelial Cells (Auto) 10-20 /lpf (0-5) Urine Bacteria (Auto) NEG (NEG) Urine Test NEG (NEG) Laboratory results per my review. Medications Administered Medications (Trade) Dose Ordered Sig/Deborah Route Start Time Stop Time Status Last Admin Dose Admin Sodium Chloride 1,000 ml @ 999 mls/hr Q1H1M STAT IV 06/05/17 07:22 06/05/17 08:22 DC 06/05/17 07:53 999 MLS/HR Hydromorphone HCl (Dilaudid Inj) 1 mg NOW STAT IV 06/05/17 07:22 06/05/17 07:23 DC 06/05/17 07:52 1 MG Ondansetron HCl (Zofran Inj) 4 mg NOW STAT IV 06/05/17 07:22 06/05/17 07:23 DC 06/05/17 07:52 4 MG Ceftriaxone Sodium (Rocephin Inj) 1 gm NOW STAT IV 06/05/17 09:04 06/05/17 09:05 DC 06/05/17 09:40 1 GM ED Course ED COURSE: Vital signs were reviewed and showed hypertensive The patients medical record was reviewed The above diagnostic studies were performed and reviewed. ED treatments and interventions as stated above. 0715: The patient was evaluated in room A2. A complete history and physical examination was performed. 0722: Ordered Zofran Inj 4 mg IV, Dilaudid Inj 1 mg IV, Sodium Chloride 1000 ml @ 999 mls/hr IV. 0752: I reevaluated the patient and she is resting more comfortably. 0904: Ordered Rocephin Inj 1 gm IV. 0906: Ordered Morphine Sulfate 6 mg IV. 0910: I discussed the patients case with Gigi Mas. They are going to take the patient to the OR. 0915: I reevaluated the patient and she is resting comfortably. I discussed the exam findings with her and I discussed the treatment plan. She verbalized complete understanding and agreement. She will be going to the Operating Room with Urology. 0944: I spoke to Gigi Mas and she states that the patient should be transferred to [facility] for additional care. 0953: I updated the patient on the new treatment plan. She is in agreement with the plan. 1011: I discussed the patients case with Interventional Radiology attending from [facility] and agreeable to evaluate the patient but is not going to accept the patient to his service. 1026: I discussed the patients case with Dr. Madden, [facility]. He states that he will accept the patient as a transfer to their facility. 1031: I reevaluated the patient and updated her on the treatment plan. She is going to be transferred to [facility]. 1052: I updated the patient at this time. She is doing well and waiting transfer to [place]. Medical Decision Differential diagnoses includes but is not limited to gastritis, peptic ulcer disease, GERD, gallbladder disease, pancreatitis, small bowel obstruction, acute coronary syndrome, pericarditis, ischemic bowel, irritable bowel disease, irritable bowel syndrome, appendicitis, diverticulitis, malignancy, hernia, urinary tract infection, torsion, /ectopic (if female), perforation, trauma, infectious. Patient is a 56-year-old female with known cancer that presents to ER for severe left flank pain. She has a mass around her left ureter and has had multiple stents in place. She notes pain started today and has been worsening. Feels like her previous obstruction. Recent stent placed by Dr. Munson on the . Recent radiation was completed last week. Labs and CT were performed. Remarkable for severe hydro-on the left. Evaluated by urology. Recommends transfer to [facility]. Discussed with [place]. 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 CBC all BMP, LFTs, bilirubin lipase is unremarkable. UA did appear to be infected and she was treated with IV Rocephin. She is transferred via ALS. Medication Reconcilliation Current Medication List: was personally reviewed by me Blood Pressure Screening Patient's blood pressure: Elevated blood pressure Blood pressure disposition: Elevated BP felt to be situational, Did not require urgent referral Consults Time Called: 904 Consulting Physician: Gigi Mas Returned Call: 09 I discussed the patients case with Gigi Mas. They are going to take the patient to the OR. Additional Consults: Time Called: 09 Consulted Physician: Interventional Radiology Returned Call: 1011 Additional Comments: I discussed the patients case with Interventional Radiology attending from [facility] and agreeable to evaluate the patient but is not going to accept the patient to his service. Time Called: 1013 Consulted Physician: Dr. Madden, [facility] Returned Call: 1026 Additional Comments: I discussed the patients case with Dr. Madden, [facility]. He states that he will accept the patient as a transfer to their facility. Impression Primary Impression: L URETERAL OBST. PELVIC MASSES. H/O ENDOMETRIAL SARCOMA Additional Impression: Urinary tract infection Scribe Attestation The scribe's documentation has been prepared under my direction and personally reviewed by me in its entirety. I confirm that the note above accurately reflects all work, treatment, procedures, and medical decision making performed by me. Departure Information Dispostion Transfer Acute Care Facility Referrals Alexander Villanueva M.D. (PCP) Problem Qualifiers Additional Impression: Urinary tract infection Urinary tract infection type: acute cystitis Hematuria presence: with hematuria Qualified Codes: N30.01 - Acute cystitis with hematuria
[2017-06-05 07:59] LABS: ISTAT CREATININE 0.9 mg/dl (0.6-1.3); ISTAT HEMOGLOBIN 13.6 g/dl (12.0-16.0); ISTAT IONIZED CALCIUM 1.34 mmol/l (1.12-1.32)
[2017-06-05 08:53] LABS: BASO % 0.6 %; BASO ABS # 0.04 K/uL (0-0.2); COMPLETE YES; EOS % 2.8 %; HEMATOCRIT 40.2 % (37-47); IG% 0.7 %; LYMPH % 18.7 %; LYMPH ABS # 1.27 K/uL (1.2-3.4); MEAN CORPUSCULAR HEMOGLOBIN 30.7 pg (25-34); MEAN CORPUSCULAR HGB CONC 33.3 g/dl (32-36); MEAN PLATELET VOLUME 9.3 fL (7.4-10.4); MONO % 9.6 %; NEUT % 67.6 %; PLATELET COUNT 382 K/uL (130-400); RED BLOOD COUNT 4.37 M/uL (4.2-5.4); WHITE BLOOD COUNT 6.79 K/uL (4.8-10.8)
--- NOTE | 2017-06-05 09:00 | DIAGNOSTIC IMAGING REPORT ---
CT SCAN OF THE ABDOMEN AND PELVIS WITH IV CONTRAST CLINICAL HISTORY: Left flank pain. History of uterine sarcoma. COMPARISON STUDY: Abdominal CT dated 03/19/2017. MRI of the liver dated 03/28/2017. TECHNIQUE: Following the IV administration of 115 cc of Optiray 320, CT scan of the abdomen and pelvis is performed from the lung bases to the proximal femora. Images are reviewed in the axial, sagittal, and coronal planes. IV contrast was administered without complication. A dose lowering technique was utilized adhering to the principles of ALARA. CT DOSE: 403.81 mGy.cm FINDINGS: Lung bases: The heart is normal in size and without pericardial effusion. There are at least 3 foci of nodularity at the left lung base which measure up to 7 mm. There is no airspace consolidation or pleural effusion. There is a tiny hiatal hernia. Liver: The contrast-enhanced liver is normal in size, contour, and attenuation. There is no intrahepatic biliary ductal dilatation. The hepatic veins and portal veins are patent. A 1.3 cm low-attenuation lesion is again seen in the right lobe of the liver on image #47. At least 3 additional subcentimeter lesions are identified. These were better characterized on the 03/28/2017 MRI. Capsular calcifications are observed. Fatty infiltration is seen adjacent to falciform ligament. Gallbladder: Unremarkable. Spleen: Normal in size and attenuation. Pancreas: Unremarkable. 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 The left adrenal gland is normal in appearance. Kidneys: The contrast enhanced kidneys are normal in size. A left ureteral stent is in appropriate position. There is moderate to severe left hydroureteronephrosis. The ureter is dilated to an obstructing mass lesion in the left hemipelvis. There is nonspecific urothelial thickening and enhancement identified in the left kidney with associated perinephric and periureteric stranding. Perfusion of left kidney is slightly heterogeneous. 2 subcentimeter cortical hypodensities in the left kidney likely represent cysts but are too small for definitive characterization. There is no right-sided hydronephrosis. Abdominal vasculature: The abdominal aorta is normal in course and caliber. Bowel: The small bowel and colon are normal in course and caliber. The appendix is well-visualized and normal. Peritoneum: There is no intraperitoneal free air or abdominal ascites. Lymphadenopathy: None. Pelvic viscera: Although decompressed, the bladder wall appears thickened and there is mild pericystic inflammation. The end of a left ureteral stent is present in the bladder. The uterus is surgically absent. There is a 3.2 x 2.5 cm left adnexal lesion seen on image #331. An adjacent lesion measuring 2.5 x 2.5 cm seen on image #307 encases the distal left ureter. Skeletal structures: The skeletal structures are osteopenic. No lytic or blastic lesions are seen. There are healed left-sided rib fractures. There is a minimal superior endplate compression deformity of T10. IMPRESSION: 1. A left ureteral stent is in appropriate position. There is moderate to severe left hydroureteronephrosis, significantly increased from 03/19/2017. This suggests stent dysfunction. 2. There is nonspecific urothelial thickening and enhancement involving the left renal pelvis and the left ureter with surrounding perinephric and periureteric inflammation. This may be related to obstruction. Correlate clinically and with urinalysis for evidence of superimposed urinary tract infection. 3. Although decompressed, the bladder wall appears thickened and there is pericystic inflammation. Again, correlate with clinical findings and urinalysis for evidence of cystitis. 4. There are 2 lesions identified in the left hemipelvis, one of which encases the left ureter. These are overall similar in appearance to the 03/19/2017 examination. 5. Small hepatic lesions are again seen and were better characterized on the 03/19/2017 MRI. These remain concerning for hepatic metastatic disease. 6. There are at least 3 foci of nodularity identified at the left lung base measuring up to 7 mm. 7. Additional findings as above. Electronically signed by: Power Yun M.D. 06/05/2017 8:58 AM Dictated Date/Time: 06/05/2017 8:10 AM
[2017-06-05] MEDS ORDERED: CEFTRIAXONE SOD INJ 1 GM ADDVIAL IV STA (09:04)
[2017-06-05] MEDS ORDERED: MoRPHine SULFATE 10 MG/ML CARP/VIAL IV STA (09:06)
[2017-06-05 09:10] LABS: BUN/CREATININE RATIO 12.1 (10-20); CALCIUM 10.3 mg/dl (8.5-10.1); CREATININE 0.94 mg/dl (0.60-1.20); POTASSIUM 3.6 mmol/L (3.5-5.1)
[2017-06-05 09:26] LABS: PREG INTERNAL NEGATIVE QC NEG CLEAR BACKGROUND; PREG INTERNAL POSITIVE QC POS CONTROL LINE; URINE APPEARANCE CLEAR (CLEAR); URINE BILIRUBIN NEG (NEG); URINE COLOR DK YELLOW; URINE NITRITE POS (NEG); URINE SPECIFIC GRAVITY > 1.045 (1.000-1.030); UROBILINOGEN NEG (NEG); ZZUR CULT IF INDIC CLEAN CATCH NO
[2017-06-05 09:29] LABS: MANUAL MICROSCOPIC REQUIRED? NO; REVIEW REQ? NO
--- NOTE | 2017-06-05 10:00 | Urology Consultation ---
History General Date of Service: Jun 05, 2017. Chief Complaint: left flank pain Primary Care Physician: Alexander Villanueva M.D. Pt seen a urologist before?: Yes (Dr. Judge) If yes, why?: left hydronephrosis History of Present Illness 56 yo female with endometrial cancer and obstructing pelvic mass causing left hydronephrosis. Pt is s/p left ureteral stent exchange on 05-21. She reports severe left flank pain 6-7/10 this morning with nausea. Pain currently improved after receiving Dilaudid. Denies gross hematuria. Denies f/c. UA today is nitrite positive. Pt reports finishing radiation for her pelvic pass recently. No current plans for surgical removal at this time, but she feels that will eventually need to occur. CT scan this morning showing persistent/worsening left hydronephrosis. Ureteral stent appears in good position. Imaging Imaging: CT Laboratory Last 24 Hours Test 06/05/17 07:41 06/05/17 07:45 06/05/17 09:15 Bedside Hemoglobin 13.6 g/dl Bedside Hematocrit 40 % Bedside Sodium 143 mEq/L Bedside Potassium 3.7 mEq/L Bedside Chloride 106 mEq/L Bedside Total CO2 27 mEq/l Anion Gap 15.0 mmol/L 8.0 mmol/L Bedside Blood Urea Nitrogen 11 mg/dl Bedside Creatinine 0.9 mg/dl Bedside Glucose (other) 113 mg/dl Bedside Ionized Calcium (Hannah) 1.34 mmol/l White Blood Count 6.79 K/uL Red Blood Count 4.37 M/uL Hemoglobin 13.4 g/dL Hematocrit 40.2 % Mean Corpuscular Volume 92.0 fL Mean Corpuscular Hemoglobin 30.7 pg Mean Corpuscular Hemoglobin Concent 33.3 g/dl Platelet Count 382 K/uL Mean Platelet Volume 9.3 fL Neutrophils (%) (Auto) 67.6 % Lymphocytes (%) (Auto) 18.7 % Monocytes (%) (Auto) 9.6 % Eosinophils (%) (Auto) 2.8 % Basophils (%) (Auto) 0.6 % Neutrophils # (Auto) 4.59 K/uL Lymphocytes # (Auto) 1.27 K/uL Monocytes # (Auto) 0.65 K/uL Eosinophils # (Auto) 0.19 K/uL Basophils # (Auto) 0.04 K/uL RDW Standard Deviation 46.9 fL RDW Coefficient of Variation 14.0 % Immature Granulocyte % (Auto) 0.7 % Immature Granulocyte # (Auto) 0.05 K/uL Sodium Level 141 mmol/L Potassium Level 3.6 mmol/L Chloride Level 108 mmol/L Carbon Dioxide Level 25 mmol/L Blood Urea Nitrogen 11 mg/dl Creatinine 0.94 mg/dl Est Creatinine Clear Calc Drug Dose 61.7 ml/min Estimated GFR () 77.5 Estimated GFR (Non- 66.9 BUN/Creatinine Ratio 12.1 Random Glucose 104 mg/dl Calcium Level 10.3 mg/dl Total Bilirubin 0.5 mg/dl Direct Bilirubin 0.1 mg/dl Aspartate Amino Transf (AST/SGOT) 13 U/L Alanine Aminotransferase (ALT/SGPT) 35 U/L Alkaline Phosphatase 85 U/L Total Protein 7.5 gm/dl Albumin 4.0 gm/dl Lipase 81 U/L Urine Color DK YELLOW Urine Appearance CLEAR Urine pH 7.0 Urine Specific [place] > 1.045 Urine Protein 1+ Urine Glucose (UA) NEG Urine Ketones NEG Urine Occult Blood 2+ Urine Nitrite POS Urine Bilirubin NEG Urine Urobilinogen NEG Urine Leukocyte Esterase SMALL Urine WBC (Auto) 5-10 /hpf Urine RBC (Auto) 10-30 /hpf Urine Hyaline Casts (Auto) 0 /lpf Urine Epithelial Cells (Auto) 10-20 /lpf Urine Bacteria (Auto) NEG Urine Test NEG Problem List Medical Problems: (1) Hydronephrosis Status: Acute (2) Left flank pain Status: Acute (3) Pelvic mass Status: Acute (4) Urinary tract infection Status: Acute Past History bowel obstruction, cancer (endometrial), migraines, other (colitis, anemia) Past Surgical History: appendectomy, colectomy, colonoscopy, hysterectomy, oophorectomy, tonsillectomy Family History diabetes, breast cancer Social History Hx Tobacco Use In Past Year?: No Smoking: non-smoker Alcohol: never Marital status: Housing status: lives with family History of MDRO No Allergies Coded Allergies: No Known Allergies (Unverified , 06/05/17) Medications Home Medications: Home Meds and Scripts Medications Dose Route/Sig Max Daily Dose Days Date Category Azo Bladder Control/Go-Le (Pumpkin Seed-Soy Germ) 1 Cap Cap 1 Cap PO TID 04/29/17 Reported Boniva (Ibandronate Sodium) 150 Mg Tab 150 Mg PO MONTHLY 04/25/17 Reported Vitamin B Complex (B-Complex Vitamins) 1 Tab Tab 1 Tab PO QAM 03/29/17 Reported Zyrtec (Cetirizine HCl) 10 Mg Tab 10 Mg PO PRN 03/29/17 Reported Vitamin D3 (Cholecalciferol) 1,000 Unit Tab 1.5 Tab PO QAM 03/29/17 Reported Os-Surendra 500 Plus D (Calcium/Vitamin D) Tab 2 Tab PO QPM 03/29/17 Reported Tylenol (Acetaminophen) 500 Mg Tab 2 Tab PO Q6 PRN 02/04/17 Reported Mag-Ox (Magnesium Oxide) 400 Mg Tab 400 Mg PO DAILY PRN 02/04/17 Reported Potassium Chloride Er (Potassium Chloride) 10 Meq Cap 1 Cap PO QAM PRN 02/04/17 Reported Folvite (Folic Acid) 1 Mg Tab 1 Tab PO QAM 02/04/17 Reported Megace (Megestrol Acetate) 40 Mg Tab 40 Mg PO BID 02/04/17 Reported Multivitamin (Multivitamins) Tab 1 Tab PO 2-3XWEEK 11/16/16 Reported Inpatient Medications: Current Inpatient Medications Medications (Trade) Dose Ordered Sig/Deborah Route Start Time Stop Time Status Last Admin Dose Admin Ioversol (Optiray 320) 125 ml UD PRN IV 06/05/17 07:45 06/09/17 07:44 Review of Systems Review of Systems Constitutional: No fever, No chills Eyes: No double vision Neurological: No dizzy Endocrine: No excessive thirst Gastrointestinal: + abdominal pain (left flank ), No nausea, No vomiting Cardiovascular: No chest pain Respiratory: No shortness of breath Skin: No rash Musculoskeletal: + back pain (left low back ) Female : No painful urination, No blood in urine Physical Exam Vital Signs: Vital Signs Past 12 Hours Date Time Temp Pulse Resp B/P (MAP) Pulse Ox O2 Delivery O2 Flow Rate FiO2 06/05/17 09:19 62 18 142/80 97 Room Air 06/05/17 07:09 36.4 84 18 166/81 97 Room Air Physical Exam: General Appearance: no apparent distress Eyes: bilateral eyes normal inspection ENT: hearing grossly normal Neck: no JVD Respiratory/Chest: no respiratory distress, no accessory muscle use Cardiovascular: no JVD Extremities: normal inspection Neurologic/Psychiatric: alert, normal mood/affect, oriented x 3 Skin: normal color Assessment & Plan Assessment & Plan A/P: Left hydronephrosis secondary to pelvic mass AFVSS. CT reviewed with Dr. Rondon and Dr. Judge this morning. Stent appears in good position, however there is extrinsic compression of the stent by the pelvic mass. Unfortunately a stent exchange is unlikely to provide any benefit as it appears to be in good position and unlikely to have malfunctioned this early post-op. Would recommend transfer to [place] for PCN tube placement at this time. Discussed with Dr. Bauman this morning. He will arrange. Thanks for the consult.
[2017-06-05 11:37] VITALS: BP 151/73; PULSE 82; TEMP 36.4; O2SAT 95
== END 2017-06-05 11:37 | disposition short-term general hospital (02) ==
LOC: C.EDB 07:09 → C.EDA 11:37
DX: R19.00 Intra-abdominal and pelvic swelling, mass and lump, unspecified site (principal); N30.01 Acute cystitis with hematuria; N13.30 Unspecified hydronephrosis; Z85.42 Personal history of malignant neoplasm of other parts of uterus; Z90.49 Acquired absence of other specified parts of digestive tract; Z90.710 Acquired absence of both cervix and uterus; Z90.721 Acquired absence of ovaries, unilateral; Z90.89 Acquired absence of other organs; Z98.890 Other specified postprocedural states; Z83.3 Family history of diabetes mellitus; Z80.3 Family history of malignant neoplasm of breast

== ENCOUNTER → 2017-06-27 | Outpatient (CLI) | payer BC ==
[~2017-06-27] MED LIST changes: -FOLI1TAB7 PO; +FOLI1TAB8 PO; +INUL1CHW2 PO; +LEVO-366 PO; +OXYC-609 PO
[2017-06-27 14:38] VITALS: BP 128/80; PULSE 75; TEMP 36.7; O2SAT 98
--- NOTE | 2017-06-27 16:25 | Radiation Oncology Follow-Up ---
Radiation Oncology Follow-Up Date of Visit Jun 27, 2017. 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 Judge from Urology -Patient restarted on Megace by Dr. Pendleton -Repeat CT Abdo/Pelvis 03/19/17 shows minimal response -Referred for radiation therapy to pelvis -Dr. Pendleton will change regimen to aromatase inhibitor Status post completion of radiation therapy 05/24/2017 received 5040 cGy Last Edited By: Laura Lindo on Jun 27, 2017 16:17 History of Present Illness Ms. Paredes was initially diagnosed with a low-grade stromal sarcoma 1996 which revealed extensive metastatic disease. The patient was initially treated with Megace and did have a very good response to therapy. The patient was in remission until earlier this year when she developed left flank pain. She had a CT of the abdomen/pelvis on 11/16/2016 which revealed: "IMPRESSION: Moderate to severe left hydroureteronephrosis with mild perinephric infiltration with abrupt caliber change of the distal left ureter likely due to a 2.7 x 2.7 cm left pelvic mass with an adjacent 2.7 x 0.7 cm enhancing mass. By report, the patient is status post hysterectomy and bilateral oophorectomy. In addition, a 3.3 x 2.1 cm mass arising from the left aspect of the vaginal cuff is noted. These findings are suggestive of recurrent malignancy. Gynecologic consultation is recommended. Findings discussed with Dr. 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 The patient was started on Megace underneath the supervision of Dr. Pendleton. The patient did undergo a left ureteral stent placement on 02/18/[address] Judge. The patient had a repeat CT of the abdomen/pelvis on 03/19/2017 which revealed: "IMPRESSION: 1. Status post left renal collecting system decompression with a left ureteral stent. Urothelial thickening is likely reactive to the stent, although infection cannot be excluded. Correlate with urinalysis. 2. Enhancing soft tissue mass in the left adnexa adjacent to the vaginal cuff is not significant changed since the prior exam. Nearby enhancing soft tissue nodularity in the left iliac region may represent additional pelvic sidewall disease versus metastatic lymphadenopathy, which are also not grossly changed in appearance. 3. Hypodense liver lesions, some not present on prior exam from November 2016. These are suspicious for metastatic spread of disease. Further confirmation with liver MR could be considered as clinically warranted. " She did have an MRI of the liver on 03/28/2017 which revealed: "IMPRESSION: 1. There are at least 3 hepatic lesions identified as detailed above, which correspond to the lesions seen by CT on 03/19/2017. These are new from 10/07/2015 and do not demonstrate typically benign kinetics. These are highly concerning for hepatic metastases given the reported cancer history. 2. Subcentimeter pulmonary nodules are seen in the left lung base. These are also concerning for metastatic disease and were better characterized on the recent CT scan. 3. Additional findings as above." Dr. Pendleton does plan to switch from Megace to aromatase inhibitor therapy in order to overcome persistent disease. We are now seeing the patient in consultation discussed the role of salvage radiation therapy to the left pelvis. In general, the patient is doing relatively well. She denies any vaginal bleeding. She has no complaints or symptoms. She underwent radiation therapy to the areas of recurrence in the pelvis. She completed radiation therapy 05/24/2017. She received 5040 cGy. Interim History She has noted no vaginal discharge or bleeding. The pelvic pressure resolved after 2 weeks posttreatment. She used [id number] AZO maximum strength. This helped to relieve the discomfort. She unfortunately developed severe left flank pain on 06/05/2017. She presented to the emergency room. She was found to have left hydronephrosis. She was referred to [facility] and underwent a percutaneous left nephrostomy tube placement. After the completion of this procedure she has been pain-free. There is been no problems with hematuria from the nephrostomy tube. She was contacted by her oncologic admissions dean and will be following up with Dr. Salgado in regards to the nephrostomy tube placement. Allergies Coded Allergies: No Known Allergies (Unverified , 06/05/17) Home Medications Scheduled B-Complex Vitamins (Vitamin B Complex), 1 TAB PO QAM Calcium/Vitamin D (Os-Surendra 500 Plus D), 2 TAB PO QPM Cetirizine (Zyrtec), 10 MG PO PRN Cholecalciferol (Vitamin D3), 1.5 TAB PO QAM Folic Acid (Folvite), 1 TAB PO QAM Ibandronate Sodium (Boniva), 150 MG PO MONTHLY Megestrol Acetate (Megace), 40 MG PO BID Multivitamin (Multivitamin), 1 TAB PO 2-3XWEEK Scheduled PRN Acetaminophen (Tylenol), 2 TAB PO Q6 PRN for Pain Magnesium Oxide (Mag-Ox), 400 MG PO DAILY PRN for Muscle Spasms Potassium Chloride (Potassium Chloride Er), 1 CAP PO QAM PRN for Muscle Spasms Review of Systems Gastrointestinal: Symptoms: WNL Oral: Symptoms: No Problems Respiratory: Symptoms: WNL Urinary: Symptoms: WNL Comments: has nephrostomy tube, only voids at night Skin: Symptoms: No Problems Physical Exam Vital Signs Date Time Temp Pulse Resp B/P (MAP) Pulse Ox O2 Delivery O2 Flow Rate FiO2 06/27/17 14:38 36.7 75 18 128/80 98 Fatigue: None General Appearance: no apparent distress Eyes: normal inspection, EOMI ENT: normal ENT inspection, hearing grossly normal Respiratory/Chest: lungs clear, no respiratory distress, no accessory muscle use Cardiovascular: regular rate, rhythm, no gallop, no murmur Abdomen: non tender, soft, no organomegaly Genitourinary - Female: external genitalia normal, + pertinent finding ( examination performed by Dr. Mcdowell. There is mild scar tissue noted in the left pelvis. There are no distinct masses and no tenderness.) Extremities: no pedal edema Neurologic/Psychiatric: no motor/sensory deficits, alert, normal mood/affect Pain Management Patient Reports Pain: No Pain Location: None Patient Preferred Pain Scale: 0 - 10 Initial Pain Intensity: 0.0 Pain Management Plan She denies pain therefore requires no pain management. Laboratory Laboratory Results: not applicable Pathology Pathology Results: not applicable Imaging Imaging Studies: were reviewed, and pertinent findings noted below Imaging Comments Patient: GEMMA PAREDES Address1: [address] [place] [address] Rec: [id number] Address2: Acct ID: [id number] [facility] Zip: [place] [id number] Date: 1960 Sex: F Room/Bed: Ref Phy: Alexander Villanueva M.D. SC: JASON Martínez Phy: Report #: [id number] Vanita Phy: Alexander Villanueva M.D. Test: APIV Admit Phy: Rn New Grad: [employer] Interpreting Phy: Power Yun M.D. Diagnosis: DOWN LEFT SIDE LEFT FLANK PAIN Ordering Phy: Tommy Bauman DO Service Date: 06/05/17 Admit Date: 06/05/17 MNE: [id number] CONF: DICTATED BY: Power Yun M.D.]] CC: Alexander Villanueva M.D. Burton, Ryan M., DO Endcc: [~ rep ct add3]] CT SCAN OF THE ABDOMEN AND PELVIS WITH IV CONTRAST CLINICAL HISTORY: Left flank pain. History of uterine sarcoma. COMPARISON STUDY: Abdominal CT dated 03/19/2017. MRI of the liver dated 03/28/2017. TECHNIQUE: Following the IV administration of 115 cc of Optiray 320, CT scan of the abdomen and pelvis is performed from the lung bases to the proximal femora. Images are reviewed in the axial, sagittal, and coronal planes. IV contrast was administered without complication. A dose lowering technique was utilized adhering to the principles of ALARA. CT DOSE: 403.81 mGy.cm FINDINGS: Lung bases: The heart is normal in size and without pericardial effusion. There are at least 3 foci of nodularity at the left lung base which measure up to 7 mm. There is no airspace consolidation or pleural effusion. There is a tiny hiatal hernia. Liver: The contrast-enhanced liver is normal in size, contour, and attenuation. There is no intrahepatic biliary ductal dilatation. The hepatic veins and portal veins are patent. A 1.3 cm low-attenuation lesion is again seen in the right lobe of the liver on image #47. At least 3 additional subcentimeter lesions are identified. These were better characterized on the 03/28/2017 MRI. Capsular calcifications are observed. Fatty infiltration is seen adjacent to falciform ligament. Gallbladder: Unremarkable. Spleen: Normal in size and attenuation. Pancreas: Unremarkable. 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 The left adrenal gland is normal in appearance. Kidneys: The contrast enhanced kidneys are normal in size. A left ureteral stent is in appropriate position. There is moderate to severe left hydroureteronephrosis. The ureter is dilated to an obstructing mass lesion in the left hemipelvis. There is nonspecific urothelial thickening and enhancement identified in the left kidney with associated perinephric and periureteric stranding. Perfusion of left kidney is slightly heterogeneous. 2 subcentimeter cortical hypodensities in the left kidney likely represent cysts but are too small for definitive characterization. There is no right-sided hydronephrosis. Abdominal vasculature: The abdominal aorta is normal in course and caliber. Bowel: The small bowel and colon are normal in course and caliber. The appendix is well-visualized and normal. Peritoneum: There is no intraperitoneal free air or abdominal ascites. Lymphadenopathy: None. Pelvic viscera: Although decompressed, the bladder wall appears thickened and there is mild pericystic inflammation. The end of a left ureteral stent is present in the bladder. The uterus is surgically absent. There is a 3.2 x 2.5 cm left adnexal lesion seen on image #331. An adjacent lesion measuring 2.5 x 2.5 cm seen on image #307 encases the distal left ureter. Skeletal structures: The skeletal structures are osteopenic. No lytic or blastic lesions are seen. There are healed left-sided rib fractures. There is a minimal superior endplate compression deformity of T10. IMPRESSION: 1. A left ureteral stent is in appropriate position. There is moderate to severe left hydroureteronephrosis, significantly increased from 03/19/2017. This suggests stent dysfunction. 2. There is nonspecific urothelial thickening and enhancement involving the left renal pelvis and the left ureter with surrounding perinephric and periureteric inflammation. This may be related to obstruction. Correlate clinically and with urinalysis for evidence of superimposed urinary tract infection. 3. Although decompressed, the bladder wall appears thickened and there is pericystic inflammation. Again, correlate with clinical findings and urinalysis for evidence of cystitis. 4. There are 2 lesions identified in the left hemipelvis, one of which encases the left ureter. These are overall similar in appearance to the 03/19/2017 examination. 5. Small hepatic lesions are again seen and were better characterized on the 03/19/2017 MRI. These remain concerning for hepatic metastatic disease. 6. There are at least 3 foci of nodularity identified at the left lung base measuring up to 7 mm. 7. Additional findings as above. Electronically signed by: Power Yun M.D. 06/05/2017 8:58 AM Dictated Date/Time: 06/05/2017 8:10 AM Assessment & Plan Plan: Dr. Mcdowell has been in contact with Dr. Pendleton. There is recommendation for follow-up scanning. She did have the scan in the emergency room on June 05. This is included in this follow-up document. There is recommendation for CT scan of the chest as well as an MRI of the liver. Today we did discuss the CT with her the lesions present are stable. She'll be notified as to results of the CT and MRI. She has a follow-up appointment in August at Dr. Sutton. She has no appointment with Dr. Salgado in July. We asked her to return to our office in 6 months. She may call if she has any questions or concerns in the interim. Copies of the CT and MRI will be sent to Dr. Sutton. A medium vaginal dilator was given should she be sexually and active. Assessment & Plan (Attending) ADDENDUM: I agree with note created by Laura Lindo PA-C. I reviewed the patient's chart and information with her. I have examined and evaluated the patient. I reviewed relevant clinical information and answered the patient's and /or family's questions. SCHOOL PSYCHOLOGIST ASSISTANT Total Time In Follow-Up I spent 20 minutes speaking to the patient and performing examination. I spent 15 minutes reviewing information in completing this note. Total Time (Attending) In Follow-Up I spent 25 minutes examining and counseling the patient. SCHOOL PSYCHOLOGIST ASSISTANT Copy To Alexander Villanueva M.D.; Nader Pendleton M.D.
== END | disposition home or self-care (01) ==
LOC: C.ONC 14:24
PROVIDERS: ATTEND Physician Assistant Medical
DX: Z08 Encounter for follow-up examination after completed treatment for malignant neoplasm (principal); Z92.3 Personal history of irradiation; Z85.89 Personal history of malignant neoplasm of other organs and systems

== ENCOUNTER → 2017-07-05 | Outpatient (CLI) | payer BC ==
[~2017-07-05] MED LIST changes: +OPTIRAY 320 IV PRN; -PUMP1CAP PO
--- NOTE | 2017-07-05 10:11 | DIAGNOSTIC IMAGING REPORT ---
CT OF THE CHEST WITH IV CONTRAST CLINICAL HISTORY: Uterine cancer. Pulmonary nodules. COMPARISON STUDY: Chest radiograph November 16, [address] of the abdomen and pelvis June 05, 2017 and October 31, 2006. TECHNIQUE: Following IV administration of 93 mL of Optiray-320, helical axial images of the chest were obtained. Sagittal and coronal reconstructions were viewed as well as maximal intensity projections on an independent 3-D workstation. A dose lowering technique was utilized adhering to the principles of ALARA. CT DOSE: 210.85 mGy.cm FINDINGS: No enlarged axillary, mediastinal or hilar lymph nodes are present. The size is normal. There is no pericardial effusion. There is no pneumothorax or pleural effusion. There is a healing fracture of the anterior left fifth rib. Numerous subpleural pulmonary nodules are noted. Lower lung nodules are unchanged since CT of October 31, 2006 and are therefore benign. These include a 7 mm left lower lobe nodule shown image 230 of 286, a 5 mm left lower lobe nodule shown image 230, a 6 mm lingular nodule shown image 184 and a 4 mm lingular nodule shown image 156. A 9 mm subpleural right middle lobe nodule was not imaged on the abdominal CT. This is indeterminate although probably benign. Note is made of an indeterminate 5 mm left lower lobe nodule shown image 136. No suspicious osseous lesions are present. Percutaneous left nephrostomy is partially imaged. The previously described hepatic lesions are not well depicted on this study due to phase of enhancement. IMPRESSION: 1. Multiple subpleural nodules. The lower lung nodules are unchanged since abdominal CT of October 31, 2006 and are therefore benign. A few additional pulmonary nodules were not imaged on that exam and are indeterminate. A follow-up chest CT in 6 months to ensure stability is recommended. 2. No acute intrathoracic findings. Electronically signed by: Uzair Us M.D. 07/05/2017 10:10 AM Dictated Date/Time: 07/05/2017 9:49 AM
== END | disposition home or self-care (01) ==
LOC: C.CTS 09:02
PROVIDERS: ATTEND Physician Assistant Medical
DX: C55 Malignant neoplasm of uterus, part unspecified (principal); R91.8 Other nonspecific abnormal finding of lung field

== ENCOUNTER → 2017-07-12 | Outpatient (CLI) | payer BC ==
[~2017-07-12] MED LIST changes: -OPTIRAY 320 IV PRN
[2017-07-12 09:36] LABS: BASO % 1.5 %; BASO ABS # 0.09 K/uL (0-0.2); EOS % 4.4 %; EOS ABS # 0.26 K/uL (0-0.5); HEMATOCRIT 41.2 % (37-47); HEMOGLOBIN 13.5 g/dL (12.0-16.0); IG# 0.02 K/uL (0.00-0.02); LYMPH % 19.5 %; LYMPH ABS # 1.15 K/uL (1.2-3.4); MEAN CELL VOLUME 93.6 fL (80-100); MEAN CORPUSCULAR HEMOGLOBIN 30.7 pg (25-34); MEAN CORPUSCULAR HGB CONC 32.8 g/dl (32-36); MEAN PLATELET VOLUME 9.7 fL (7.4-10.4); MONO % 8.6 %; MONO ABS # 0.51 K/uL (0.11-0.59); NEUT % 65.7 %; NEUT ABS # 3.88 K/uL (1.4-6.5); PLATELET COUNT 381 K/uL (130-400); RED CELL DISTRIBUTION WIDTH CV 13.1 % (11.5-14.5); RED CELL DISTRIBUTION WIDTH SD 45.2 fL (36.4-46.3); WHITE BLOOD COUNT 5.91 K/uL (4.8-10.8)
[2017-07-12 10:31] LABS: BLOOD UREA NITROGEN 11 mg/dl (7-18); CALCIUM 9.5 mg/dl (8.5-10.1); CARBON DIOXIDE 26 mmol/L (21-32); CREATININE 0.83 mg/dl (0.60-1.20); GLUCOSE 72 mg/dl (70-99); POTASSIUM 3.6 mmol/L (3.5-5.1); SODIUM 141 mmol/L (136-145)
== END | disposition home or self-care (01) ==
LOC: C.LAB 08:06
PROVIDERS: ATTEND Urology
DX: Z01.812 Encounter for preprocedural laboratory examination (principal); N13.1 Hydronephrosis with ureteral stricture, not elsewhere classified

== ENCOUNTER → 2017-07-15 | Outpatient (CLI) | payer BC ==
[~2017-07-15] MED LIST changes: +GADOXETATE DISODIUM (NON-WT BASED PROCEDURE) IV PRN; -INUL1CHW2 PO; -LEVO-366 PO; -OXYC-609 PO
--- NOTE | 2017-07-15 08:22 | DIAGNOSTIC IMAGING REPORT ---
MRI LIVER COMBO CLINICAL HISTORY: Metastatic uterine carcinoma.. TECHNIQUE: Imaging was performed prior to and following IV contrast injection (10 cc intravenous Eovist. COMPARISON STUDY: 03/28/2017 FINDINGS: There are no suspicious areas of marrow edema. There is 8 mm left renal cyst. No splenic masses are visualized. No adrenal masses are visualized. No pancreatic masses are visualized. There is no ductal dilatation. No gallbladder abnormalities are visualized. There are signal voids present within the right hepatic lobe medially beneath the dome of the diaphragm. These are felt to represent susceptibility artifact from calcifications identified on a CT scan dated 06/05/2017. The previously described 3 foci of restricted water diffusion within the right lobe of the liver, appear smaller on today's study. The largest is decreased from 22 mm in length to 15 mm in length. Central lesion has decreased in size from 6 mm to 5 mm. The inferior right lobe lesion has decreased in size from 4 mm to 3 mm. No new or enlarging hepatic lesions are evident. The previous identified left lower lobe pulmonary nodules, also appear smaller on today's study. IMPRESSION: 1. Treatment response with slight interval decrease in the size of the previously identified three right lobe hepatic lesions 2. Interval decrease in the size of the left lower lobe nodules 3. No new or enlarging masses are visualized. Electronically signed by: Balwinder Kumar M.D. 07/15/2017 8:20 AM Dictated Date/Time: 07/15/2017 7:59 AM
== END | disposition home or self-care (01) ==
LOC: C.MRI 06:32
PROVIDERS: ATTEND Physician Assistant Medical
DX: C55 Malignant neoplasm of uterus, part unspecified (principal); K76.9 Liver disease, unspecified; R91.8 Other nonspecific abnormal finding of lung field

== ENCOUNTER 2017-08-09 20:36 | Emergency (ER) | payer BC ==
[~2017-08-09] VITALS: Ht 160 cm; Wt 73.8 kg
[~2017-08-09 20:36] MED LIST changes: -GADOXETATE DISODIUM (NON-WT BASED PROCEDURE) IV PRN
[2017-08-09 20:45] VITALS: TEMP 36.5; Ht 160 cm; Wt 73.8 kg
[2017-08-09] MEDS ORDERED: INUL1CHW2 PO (21:30)
[2017-08-09] MEDS ORDERED: OXYC-609 PO (21:30)
[2017-08-09 22:22] LABS: BASO % 0.7 %; BASO ABS # 0.05 K/uL (0-0.2); HEMATOCRIT 40.4 % (37-47); IG# 0.02 K/uL (0.00-0.02); LYMPH % 16.7 %; LYMPH ABS # 1.24 K/uL (1.2-3.4); MEAN CELL VOLUME 89.8 fL (80-100); MEAN CORPUSCULAR HEMOGLOBIN 31.1 pg (25-34); MEAN CORPUSCULAR HGB CONC 34.7 g/dl (32-36); MEAN PLATELET VOLUME 8.9 fL (7.4-10.4); MONO % 10.5 %; MONO ABS # 0.78 K/uL (0.11-0.59); NEUT % 67.8 %; NEUT ABS # 5.03 K/uL (1.4-6.5); PLATELET COUNT 445 K/uL (130-400); RED CELL DISTRIBUTION WIDTH CV 12.5 % (11.5-14.5); RED CELL DISTRIBUTION WIDTH SD 40.4 fL (36.4-46.3); WHITE BLOOD COUNT 7.42 K/uL (4.8-10.8)
[2017-08-09 22:40] LABS: CALCIUM 10.2 mg/dl (8.5-10.1); CREATININE 0.86 mg/dl (0.60-1.20); POTASSIUM 3.7 mmol/L (3.5-5.1)
[2017-08-09] MEDS ORDERED: LEVOFLOXACIN 250 MG TAB ONE (23:27)
[2017-08-09] MEDS ORDERED: LEVOFLOXACIN 750 MG TAB PO ONE (23:30)
[2017-08-09] MEDS ORDERED: LEVO-366 PO (23:35)
--- NOTE | 2017-08-09 23:35 | EMERGENCY ROOM VISIT NOTE ---
History Report prepared by Kailey: Georgina Matthews Under the Supervision of: Dr. Fredis Martinez M.D. First contact with patient: 21:28 Chief Complaint: FLANK PAIN Stated Complaint: L FLANK PAIN History of Present Illness The patient is a 57 year old white female with a past medical history of endometrial CA, percutaneous nephrostomy who presents to the ED with a cc of persistent left flank pain beginning 1800 today. The pain is relieved by draining urine out of nephrostomy. She has no other complaints. The patient had the nephrostomy tube replaced 2 weeks ago. At that time, the nephrostomy bag was removed and the tube was capped. She had not had any problems urinating until today. Source of History: patient Onset: 1800 today Position: other (left flank) Quality: other (pain) Timing: other (persistent) Modifying Factors (Relieving): other (draining urine from nephrostomy) Note: No other complaints. Review of Systems See HPI for pertinent positives and negatives. A total of ten systems were reviewed and were otherwise negative. Past Medical & Surgical Medical Problems: (1) L URETERAL OBST. PELVIC MASSES. H/O ENDOMETRIAL SARCOMA (2) L URETERAL OBST. PELVIC MASSES. H/O ENDOMETRIAL SARCOMA Family History Cancer Social History Smoking Status: Never Smoker Marital Status: Housing Status: lives with family Occupation Status: employed Current/Historical Medications Scheduled Calcium/Vitamin D (Os-Surendra 500 Plus D), 2 TAB PO QPM Cetirizine (Zyrtec), 10 MG PO PRN Cholecalciferol (Vitamin D3), 1.5 TAB PO QAM Folic Acid (Folvite), 1 TAB PO QAM Ibandronate Sodium (Boniva), 150 MG PO MONTHLY Inulin (Fiber Choice), 1 TAB PO DAILY Levofloxacin (Levaquin), 500 MG PO DAILY Megestrol Acetate (Megace), 40 MG PO BID Multivitamin (Multivitamin), 1 TAB PO 2-3XWEEK Scheduled PRN Acetaminophen (Tylenol), 2 TAB PO Q6 PRN for Pain Magnesium Oxide (Mag-Ox), 400 MG PO DAILY PRN for Muscle Spasms Oxycodone HCl (Oxycodone HCl), 5 MG PO Q6 PRN for Pain Potassium Chloride (Potassium Chloride Er), 1 CAP PO QAM PRN for Muscle Spasms Allergies Coded Allergies: No Known Allergies (Unverified , 08/09/17) Physical Exam Vital Signs Date Time Temp Pulse Resp B/P (MAP) Pulse Ox O2 Delivery O2 Flow Rate FiO2 08/09/17 23:46 110 15 127/83 98 08/09/17 22:45 110 15 127/83 08/09/17 20:45 36.5 113 20 133/88 98 Room Air Physical Exam GENERAL: Awake, alert, well-appearing, NAD HENT: Normocephalic, atraumatic. EYES: Normal conjunctiva. Sclera non-icteric. NECK: Supple. No nuchal rigidity. FROM. RESPIRATORY: CTAB, no rhonchi, wheezing, crackles CARDIAC: RRR, no MRG ABDOMEN: Soft, NTND, BS+ MSK: No chest wall TTP, no LE edema. No CVA TTP. Left percutaneous nephrostomy tube in the left back which is CDI. No erythema. No fluctuance. No drainage. NEURO: GCS 15, CN 2-12 intact, moves all 4s on command SKIN: No rash or jaundice noted. Medical Decision & Procedures Laboratory Results 08/09/17 22:10 Red Blood Count 4.50, Mean Corpuscular Volume 89.8, Mean Corpuscular Hemoglobin 31.1, Mean Corpuscular Hemoglobin Concent 34.7, Mean Platelet Volume 8.9, Neutrophils (%) (Auto) 67.8, Lymphocytes (%) (Auto) 16.7, Monocytes (%) (Auto) 10.5, Eosinophils (%) (Auto) 4.0, Basophils (%) (Auto) 0.7, Neutrophils # (Auto ) 5.03, Lymphocytes # (Auto) 1.24, Monocytes # (Auto) 0.78, Eosinophils # (Auto ) 0.30, Basophils # (Auto) 0.05 08/09/17 22:10 Test 08/09/17 22:02 08/09/17 22:10 Urine Color YELLOW Urine Appearance CLOUDY (CLEAR) Urine pH 5.5 (4.5-7.5) Urine Specific [place] 1.012 (1.000-1.030) Urine Protein TRACE (NEG) Urine Glucose (UA) 1+ (NEG) Urine Ketones NEG (NEG) Urine Occult Blood 1+ (NEG) Urine Nitrite POS (NEG) Urine Bilirubin NEG (NEG) Urine Urobilinogen NEG (NEG) Urine Leukocyte Esterase LARGE (NEG) Urine WBC (Auto) >30 /hpf (0-5) Urine RBC (Auto) 0-4 /hpf (0-4) Urine Hyaline Casts (Auto) 1-5 /lpf (0-5) Urine Epithelial Cells (Auto) 0-5 /lpf (0-5) Urine Bacteria (Auto) NEG (NEG) Urine Crystals CALCIUM OXALATE (NONE White Blood Count 7.42 K/uL (4.8-10.8) Red Blood Count 4.50 M/uL (4.2-5.4) Hemoglobin 14.0 g/dL (12.0-16.0) Hematocrit 40.4 % (37-47) Mean Corpuscular Volume 89.8 fL (80-100) Mean Corpuscular Hemoglobin 31.1 pg (25-34) Mean Corpuscular Hemoglobin Concent 34.7 g/dl (32-36) Platelet Count 445 K/uL (130-400) Mean Platelet Volume 8.9 fL (7.4-10.4) Neutrophils (%) (Auto) 67.8 % Lymphocytes (%) (Auto) 16.7 % Monocytes (%) (Auto) 10.5 % Eosinophils (%) (Auto) 4.0 % Basophils (%) (Auto) 0.7 % Neutrophils # (Auto) 5.03 K/uL (1.4-6.5) Lymphocytes # (Auto) 1.24 K/uL (1.2-3.4) Monocytes # (Auto) 0.78 K/uL (0.11-0.59) Eosinophils # (Auto) 0.30 K/uL (0-0.5) Basophils # (Auto) 0.05 K/uL (0-0.2) RDW Standard Deviation 40.4 fL (36.4-46.3) RDW Coefficient of Variation 12.5 % (11.5-14.5) Immature Granulocyte % (Auto) 0.3 % Immature Granulocyte # (Auto) 0.02 K/uL (0.00-0.02) Anion Gap 8.0 mmol/L (3-11) Est Creatinine Clear Calc Drug Dose 67.8 ml/min Estimated GFR () 85.7 Estimated GFR (Non- 73.9 BUN/Creatinine Ratio 15.4 (10-20) Calcium Level 10.2 mg/dl (8.5-10.1) Laboratory results reviewed by me Medications Administered Medications (Trade) Dose Ordered Sig/Deborah Route Start Time Stop Time Status Last Admin Dose Admin Levofloxacin (Levaquin Tab) 500 mg STK-MED ONCE .ROUTE 08/09/17 23:27 08/09/17 23:28 DC 08/09/17 23:29 500 MG ED Course 2133: The patient was evaluated in room C2B. A complete history and physical exam was performed. 6: I discussed the patient's case with Dr. Salgado, [facility]. He agrees with putting on a bag open to gravity. If the bag can't be placed, the cap can be opened every 3-4 hours or as needed for pain. 2251: I reevaluated the patient. I updated her on the results. 2321: I reevaluated the patient. Discussed results and discharge instructions: She verbalized understanding and agreement. The patient is ready for discharge. Medical Decision The patient is a 57 year old white female with a past medical history of endometrial CA, percutaneous nephrostomy who presents to the ED with a cc of persistent left flank pain beginning 1800 today. Differential diagnosis: Etiologies such as renal colic, appendicitis, diverticulitis, mesenteric ischemia, aortic pathology, infections, inflammatory bowel disease, PUD, biliary pathology, UTI, as well as others were entertained. Patient was seen and evaluated the bedside. Patient forcing does have a history of prior endometrial CA which has caused some issues with her ureteral compression. Patient has had a stent placed. Patient unfortunately did have possible collapse and compression of the stent and recently was transferred to [place] where she had a percutaneous nephrostomy tube placed. Patient was still trying to urinate without any issues as the patient was transitioned from a bag to a capped nephrostomy tube. Patient has had some crusting of the stent. Patient did complain of some mild pain that occur that was left sided. They did open the nephrostomy tube and drained approximately 120 mL. This relieved her pain and discomfort soon thereafter. Patient does not complain of any pain at this time. Given this the patient did have blood work completed along with urinalysis of both a normal urine specimen as well as what came from her nephrostomy tube. The patient's blood work was fairly unremarkable. The patient's 2 urine specimens the patient's clean-catch appeared to be infected. Patient was given a first dose of Levaquin. I did review the patient's prior sensitivities of the last 2 years the patient did have some skin mahi but nothing else. Patient was given an outpatient course of Levaquin. I did speak with the patient's urology oncologist who agreed with the plan of care. We did open her nephrostomy tube to gravity and she was given a leg bag as well as 1 additional one. Patient was told to follow-up with her specialists as scheduled. Patient was given return precautions and warning signs for which to return. Patient was agreeable to plan of care. Patient was given strict follow- up, discharge, and return precautions. All questions were answered. Patient was deemed suitable for outpatient follow-up at this time. Patient agreed with the plan of care and was safely discharged home. The chart was completed utilizing [employer] voice recognition software. Grammatical errors, random word insertions, pronoun errors, and incomplete sentences are an occasional consequence of this system due to software limitations, ambient noise, and hardware issues. Any formal questions or concerns about the content, text, or information contained within the body of this dictation should be directly addressed to the physician for clarification. Medication Reconcilliation Current Medication List: was personally reviewed by me Blood Pressure Screening Patient's blood pressure: Normal blood pressure Blood pressure disposition: Did not require urgent referral Consults Time Called: 2151 Consulting Physician: Dr. Salgado [facility] Returned Call: [phone] I discussed the patient's case with him. He agrees with putting on a bag open to gravity. If the bag can't be placed, the cap can be opened every 3-4 hours or as needed for pain. Impression Primary Impression: Left flank pain Additional Impressions: Nephrostomy complication UTI (urinary tract infection) Scribe Attestation The scribe's documentation has been prepared under my direction and personally reviewed by me in its entirety. I confirm that the note above accurately reflects all work, treatment, procedures, and medical decision making performed by me. Departure Information Dispostion Home / Self-Care Prescriptions Levofloxacin (Levaquin) 500 Mg Tab 500 MG PO DAILY for 5 Days, #5 TAB Prov: Fredis Martinez M.D. 08/09/17 Referrals Alexander Villanueva M.D. (PCP) Patient Instructions ED UTI Cystitis Female, My [facility] Additional Instructions Please return to the emergency department if you have worsening or recurrent symptoms not amenable to at-home treatment. Please call for a follow-up appointment with her primary care physician. Please take your medications as prescribed. If you have other concerns and/or complaints please feel free to also call your primary care physician's office or return the ED for further evaluation, management, and treatment. Please return if you have any worsening pain was not relieved even with your nephrostomy bag draining. Please return if you're nephrostomy does not drain. Please keep any scheduled appointments that she would have with your specialist and/or primary care physician. Take your medications as prescribed. If taking an antibiotic consider taking a probiotic and/or eating yogurt, but at the least, please take with food as it can cause upset stomach. If culture results are not available at discharge, if they are positive for concern of infection, you will be informed of the results as soon as they are available. You have been examined and treated today on an emergency basis only. This is not a substitute for, or an effort to provide, complete comprehensive medical care. It is impossible to recognize and treat all injuries or illnesses in a single emergency department visit. It is therefore important that you follow up closely with [facility], your PCP, and/or your specialist(s). Call as soon as possible for an appointment. Thank you for your time and consideration. I look forward to speaking with you again soon. Please don't hesitate to call us if you have any questions. Problem Qualifiers Additional Impressions: UTI (urinary tract infection) Urinary tract infection type: acute cystitis Hematuria presence: with hematuria Qualified Codes: N30.01 - Acute cystitis with hematuria
[2017-08-09 23:46] VITALS: BP 127/83; PULSE 110; O2SAT 98
== END 2017-08-09 23:47 | disposition home or self-care (01) ==
LOC: C.EDB 20:37 → C.EDC 23:47
DX: R10.9 Unspecified abdominal pain (principal); N99.528 Other complication of incontinent external stoma of urinary tract; N30.01 Acute cystitis with hematuria; Z85.42 Personal history of malignant neoplasm of other parts of uterus; Z80.9 Family history of malignant neoplasm, unspecified; Z79.899 Other long term (current) drug therapy

== ENCOUNTER → 2017-08-26 | Outpatient (CLI) | payer BC ==
[~2017-08-26] MED LIST changes: -B-COTAB18 PO; +INUL1CHW2 PO; +OXYC-609 PO
== END | disposition home or self-care (01) ==
LOC: C.LABSPEC 12:42
PROVIDERS: ATTEND Internal Medicine
DX: N39.0 Urinary tract infection, site not specified (principal)

== ENCOUNTER → 2017-09-16 | Outpatient (CLI) | payer BC | END | disposition home or self-care (01) | LOC: C.LABSPEC 12:33 | PROVIDERS: ATTEND Internal Medicine | DX: N39.0 Urinary tract infection, site not specified (principal) ==

== ENCOUNTER → 2018-01-27 | Outpatient (CLI) | payer BC ==
[~2018-01-27] MED LIST changes: -OXYC-609 PO
--- NOTE | 2018-01-27 07:21 | DIAGNOSTIC IMAGING REPORT ---
CT OF THE ABDOMEN AND PELVIS WITHOUT CONTRAST CLINICAL HISTORY: Hematuria. Ureteral stricture. History of endometrial cancer. COMPARISON STUDY: CT of the abdomen and pelvis June 05, 2017 and MRI of the pelvis April 13, 2017. TECHNIQUE: Axial images of the abdomen and pelvis were obtained without IV contrast. Images were reviewed in the axial, sagittal, and coronal planes. A dose lowering technique was utilized adhering to the principles of ALARA. FINDINGS: Nodules within the left lower lung are unchanged from earlier exams and are likely benign given stability. The previously described hepatic lesions are not well depicted on this unenhanced exam. The spleen, adrenal glands and pancreas are normal. There is no biliary or pancreatic ductal dilatation. The left ureteral stent has been removed since CT of June 05, 2017. Several metallic densities are noted anterior to the left renal pelvis. There is mild dilatation of the left renal pelvis without hydronephrosis. This has significantly improved since exam June 05, 2017. There is no significant ureteral dilatation. The uterus is surgically absent. The two previously described lesions within the left hemipelvis have slightly decreased in size since exam of June 05, 2017. The more superior lesion shown on image [id number] measures 2.4 x 2 cm. It previously measured 2.5 x 2.5 cm. The more inferior lesion shown on image 350 measures 3 x 2.1 cm. A previous measured 2.4 x 3.2 cm. These lesions either abut or encase the distal left ureter, as before. Mild bladder wall thickening is unchanged. There is no evidence for a bowel obstruction. No suspicious osseous lesions are present. IMPRESSION: 1. Significant interval improvement in left hydroureteronephrosis since CT of June 05, 2017. Mild residual dilatation of the left renal pelvis. Interval stent removal. 2. 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 Electronically signed by: Uzair Us M.D. 01/27/2018 7:20 AM Dictated Date/Time: 01/27/2018 6:56 AM
== END | disposition home or self-care (01) ==
LOC: C.CTS 06:35
PROVIDERS: ATTEND Urology
DX: R31.29 Other microscopic hematuria (principal); N35.9 Urethral stricture, unspecified